=== PATIENT | female | born 1965 | race African-American/Black ===

== ENCOUNTER 2017-08-25 13:08 | Emergency (ER) | payer OTHER ==
[2017-08-25 15:35] LABS: ABS Basophils 0 10^3/ul (0-0.2); ABS Eosinophils 0.1 10^3/ul (0-0.6); ABS Monocytes 0.7 10^3/ul (0-0.8); ABS Neutrophils 3.1 10^3/ul (1.5-7.7); ABS Nucleated RBC 0 10^3/ul; Eosinophil % 2.4 % (0-6); Hematocrit 44 % (35-47); Lymphocyte % 32.9 % (25-47); Mean Corpuscular HGB Conc 34 g/dl (31-36); Mean Corpuscular Hemoglobin 32 pg (27-31); Mean Corpuscular Volume 94 fL (80-97); Mean Platelet Volume 8 um3 (7.4-10.4); Nucleated Red Blood Cells % 0.1; Platelet Count 321 10^3/ul (150-450); Red Cell Distribution Width 13 % (10.5-15)
[2017-08-25 15:49] LABS: EGFR Non-African American 58.7 (>60)
--- NOTE | 2017-08-25 16:18 | RAD ---
INDICATION: Pain and swelling. COMPARISON: None TECHNIQUE: Duplex interrogation of the Lowerextremity was performed. FINDINGS: Deep veins: The common femoral, great saphenous, profunda femoris, proximal, mid, and distal deep femoral, popliteal, posterior tibial, and peroneal veins are patent. There is normal compressibility, augmentation, and phasic flow. Superficial veins: There are no findings of superficial thrombophlebitis. Popliteal fossa:There is no evidence of a popliteal cyst. Soft tissues:There are no soft tissue abnormalities. IMPRESSION: Normal examination. No evidence of deep venous thrombosis
[2017-08-25] MEDS ORDERED: Ketorolac INJ* 60 MG/2 ML VIAL IM ONE (17:04)
[2017-08-25 18:05] VITALS: BP 127/69
--- NOTE | 2017-08-26 17:38 | ED ---
Christine White Edward, scribed for Casey Martinez MD on 08/25/17 at 1459 . Lower Extremity - HPI Summary HPI Summary: 52 y/o female presents to the ED c/o bilateral lower extremity pain starting 2 days ago. The pain started at her L toes and radiates up the back of her leg to her lower back. The pain at her R leg is at her foot and has started to radiate up her leg. 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 Denies DM. Pt stopped smoking 7 months ago. - History of Current Complaint Chief Complaint: EDExtremityLower Stated Complaint: PAIN IN BOTH LEGS Time Seen by Provider: 08/25/17 14:55 Hx Obtained From: Patient Hx Last Menstrual Period: 2 wks ago Onset of Pain: Days Onset/Duration: Still Present Severity Currently: Severe Pain Intensity: 10 Pain Scale Used: 0-10 Numeric Timing: Constant Location: Radiates To - feet up the back of the legs to the back - Allergies/Home Medications Allergies/Adverse Reactions: Allergies Allergy/AdvReac Type Severity Reaction Status Date / Time No Known Allergies Allergy Verified 08/25/17 13:10 PMH/Surg Hx/FS Hx/Imm Hx Previously Healthy: No Endocrine/Hematology History: Denies: Hx Diabetes Respiratory History: Reports: Hx Asthma - Cancer History Hx Chemotherapy: No Hx Radiation Therapy: No - Surgical History Surgery Procedure, Year, and Place: tonsils; tubal ligation Infectious Disease History: No Infectious Disease History: Denies: Traveled Outside the [place] in Last 30 Days - Family History Known Family History: Positive: None - Social History Alcohol Use: Occasionally Hx Substance Use: No Substance Use Type: Reports: None Hx Tobacco Use: Yes Smoking Status (MU): Former Smoker Review of Systems Constitutional: Negative Eyes: Negative ENT: Negative Cardiovascular: Negative Respiratory: Negative Gastrointestinal: Negative Genitourinary: Negative Positive: Myalgia - bilateral LE pain Skin: Negative Neurological: Negative Psychological: Normal All Other Systems Reviewed And Are Negative: Yes Physical Exam - Summary Physical Exam Summary: VITAL SIGNS: Reviewed. GENERAL: Patient is a well-developed and nourished female who is lying comfortable in the stretcher. Patient is not in any acute respiratory distress. HEAD AND FACE: No signs of trauma. No ecchymosis, hematomas or skull depressions. No sinus tenderness. EYES: PERRLA, EOMI x 2, No injected conjunctiva, no nystagmus. EARS: Hearing grossly intact. Ear canals and tympanic membranes are within normal limits. MOUTH: Oropharynx within normal limits. NECK: Supple, trachea is midline, no adenopathy, no JVD, no carotid bruit, no c- spine tenderness, neck with full ROM. CHEST: Symmetric, no tenderness at palpation LUNGS: Clear to auscultation bilaterally. No wheezing or crackles. CVS: Regular rate and rhythm, S1 and S2 present, no murmurs or gallops appreciated. ABDOMEN: Soft, non-tender. No signs of distention. No rebound no guarding, and no masses palpated. Bowel sounds are normal. EXTREMITIES: FROM in all major joints, no edema, no cyanosis or clubbing. There is L calf tenderness. Positive Karen's sign. NEURO: Alert and oriented x 3. No acute neurological deficits. Speech is normal and follows commands. SKIN: Dry and warm Triage Information Reviewed: Yes Vital Signs On Initial Exam: Initial Vitals Temp Pulse Resp BP Pulse Ox 98.3 F 98 20 132/75 100 08/25/17 13:10 08/25/17 13:10 08/25/17 13:10 08/25/17 13:10 08/25/17 13:10 Vital Signs Reviewed: Yes Diagnostics - Vital Signs Vital Signs Temp Pulse Resp BP Pulse Ox 08/25/17 13:10 98.3 F 98 20 132/75 100 - Laboratory Lab Results: Lab Results 08/25/17 08/25/17 Range/Units 15:29 15:29 WBC 6.0 (3.5-10.8) 10^3/ul RBC 4.70 (4.0-5.4) 10^6/ul Hgb 15.0 (12.0-16.0) g/dl Hct 44 (35-47) % MCV 94 (80-97) fL MCH 32 H (27-31) pg MCHC 34 (31-36) g/dl RDW 13 (10.5-15) % Plt Count 321 (150-450) 10^3/ul MPV 8 (7.4-10.4) um3 Neut % (Auto) 51.5 (38-83) % Lymph % (Auto) 32.9 (25-47) % Ceiba % (Auto) 12.4 H (1-9) % Eos % (Auto) 2.4 (0-6) % Baso % (Auto) 0.8 (0-2) % Absolute Neuts (auto) 3.1 (1.5-7.7) 10^3/ul Absolute Lymphs (auto) 2.0 (1.0-4.8) 10^3/ul Absolute Monos (auto) 0.7 (0-0.8) 10^3/ul Absolute Eos (auto) 0.1 (0-0.6) 10^3/ul Absolute Basos (auto) 0 (0-0.2) 10^3/ul Absolute Nucleated RBC 0 10^3/ul Nucleated RBC % 0.1 Sodium 137 (133-145) mmol/L Potassium 3.8 (3.5-5.0) mmol/L Chloride 105 (101-111) mmol/L Carbon Dioxide 26 (22-32) mmol/L Anion Gap 6 (2-11) mmol/L BUN 11 (6-24) mg/dL Creatinine 1.00 H (0.51-0.95) mg/dL Est GFR ( Amer) 75.5 (>60) Est GFR (Non-Af Amer) 58.7 (>60) BUN/Creatinine Ratio 11.0 (8-20) Glucose 132 H (70-100) mg/dL Uric Acid 4.3 (2.3-6.6) mg/dL Calcium 8.8 (8.6-10.3) mg/dL Total Bilirubin 0.50 (0.2-1.0) mg/dL AST 19 (13-39) U/L ALT 7 (7-52) U/L Alkaline Phosphatase 94 (34-104) U/L C-Reactive Protein 3.90 (< 5.00) mg/L Total Protein 6.7 (6.4-8.9) g/dL Albumin 4.0 (3.2-5.2) g/dL Globulin 2.7 (2-4) g/dL Albumin/Globulin Ratio 1.5 (1-3) Result Diagrams: 08/25/17 15:29 08/25/17 15:29 Lab Statement: Any lab studies that have been ordered have been reviewed, and results considered in the medical decision making process. - Ultrasound No standard instances Ultrasound Interpretation: No Acute Changes - DANAE DOPPLER LE - Normal examination. No evidence of deep venous thrombosis Ultrasound Interpretation Completed By: Radiologist Lower Extremity Course/Dx - Course Assessment/Plan: 52 y/o female presents to the ED c/o bilateral lower extremity pain starting 2 days ago. The pain started at her L toes and radiates up the back of her leg to her lower back. The pain at her R leg is at her foot and has started to radiate up her leg. 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 Denies DM. Pt stopped smoking 7 months ago. DANAE DOPPLER LE - Normal examination. No evidence of deep venous thrombosis. Test results are without significant abnormalities. In the ED course the pt was given Toradol and the sx improved; the pt is ambulating without difficulty. Therefore, I discussed the test results and findings with the patient and she will be d/c home with f/u with her PCP. The pt is hemodynamically stable, A&Ox3. - Diagnoses Differential Diagnosis/HQI/PQRI: Positive: Bursitis, Cellulitis, DVT, Sprain, Strain Provider Diagnoses: Musculoskeletal leg pain Discharge - Discharge Plan Condition: Stable Disposition: HOME Prescriptions: Naproxen [Naproxen 500 mg] 500 mg PO Q8H PRN #20 tab PRN Reason: Pain Patient Education Materials: Leg Pain (ED) Forms: *Work Release Referrals: Bam Samayoa MD [Primary Care Provider] - 4 Days (PLEASE F/U IN 3-5 DAYS NEEDED) Additional Instructions: RETURN TO THE ED FOR THE RETURN OF OR WORSENING OF SYMPTOMS The documentation as recorded by the Christine santos Edward accurately reflects the service I personally performed and the decisions made by , Casey Martinez MD.
== END 2017-08-25 18:04 | disposition home or self-care (01) ==
LOC: ED 13:08
DX: M79.662 Pain in left lower leg (principal); M79.661 Pain in right lower leg; Z87.891 Personal history of nicotine dependence
CPT/HCPCS: 36415; 80053; 84550; 85025; 86140; 99282; J1885

== ENCOUNTER 2017-12-06 08:55 | Emergency (ER) | payer OTHER ==
[2017-12-06] MEDS ORDERED: Ketorolac INJ* 60 MG/2 ML VIAL IM ONE (09:48)
--- NOTE | 2017-12-06 09:58 | RAD ---
INDICATION: Right knee injury. TECHNIQUE: 4 views of the right knee were obtained. FINDINGS: The bones are in normal alignment. No joint effusion or fracture is seen. There is mild osteoarthritic change in the patellofemoral compartment. IMPRESSION: NO EVIDENCE FOR FRACTURE.
[2017-12-06 11:21] VITALS: BP 159/80
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
== END 2017-12-06 11:18 | disposition home or self-care (01) ==
LOC: ED 08:55
DX: S80.01XA Contusion of right knee, initial encounter (principal); V49.40XA Driver injured in collision with unspecified motor vehicles in traffic accident, initial encounter; Y93.89 Activity, other specified; Y92.9 Unspecified place or not applicable; J45.909 Unspecified asthma, uncomplicated; Z87.891 Personal history of nicotine dependence
CPT/HCPCS: 96372; 99282; J1885

== ENCOUNTER 2018-01-05 10:20 | Emergency (ER) | payer OTHER ==
--- OUTSIDE RECORDS SUMMARY | 2018-01-05 10:54 | XMS REPORT ---
:1965 External Reference #:[id number] Author Organization [employer] Address [address] [facility] [address] [place] [address] Phone [phone] Care Team Providers Name Role Phone Bam Samayoa MD Primary Care Physician Unavailable Payers Type Date Identification Numbers Payment Provider Subscriber Commercial Effective: Policy Number: [id number] [employer] Andaleda N Schwab 2015 Medicaid PayID: [id number] [address] [place] [phone] Commercial Expires: Policy Number: M[employer] Andaleda N 2015 [id number] Medicaid [place] PayID: [id number] [address] [address] [place] [address] Workers Compensation Effective: Policy Number: Dakotah Aleman Whitney Schwab 2013 [id number] Onset: 2013 PayID: [id number] [address] [place] [address] Problems Date Description Provider Status Onset: 10/09/2013 Sprain of wrist Erica Parry M.D. 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 ETOH Use Denies alcohol use Smoking 2002 Patient is a current smoker, stopped smoking 03/2015 smokes every day Recreational Drug Use Denies Drug Use Recreational Drug Use Formerly used Marijuana sporadically Daily Caffeine Consumes on average 1 cup of regular coffee per day Exercise Type/Frequency Does not exercise STD's 2010 [facility] General Hx Text hx of incarceration X 1 yr due to making verbal threats Sexual Hx text has a boyfriend Allergies, Adverse Reactions, Alerts Date Description Reaction Status Severity Comments 02/23/2013 NKDA active 02/23/2013 Seasonal active Medications Medication Date Status Form Strength Qnty SIG Indications Ordering Provider Naproxen 12/12/ Active Tablets 500mg 60tab 1 tablet with M25.561 Brett 2017 s food by mouth F twice a day Steve, as needed Ibuprofen 04/17/ Active Tablets 800mg 60tab 1 tab by N94.6 Zsofia 2016 s mouth three Kyle, times a day 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 2018 not close to bedtime Metronidazole 05/31/ Hx Tablets 500mg 4tabs take 4 A59.01 Erica 2014 - tablets Sohan 06/24/ together po M.D. 2014 x1 Diflucan 04/29/ Hx Tablets 150mg 2tabs 1 tab by Erica 2014 - mouth once no Sohan, 05/31/ and then M.D. 2014 repeat in 1 week Venlafaxine HCL 04/28/ Hx Caps ER 37.5mg 49cap 1 tab by Z00.00 Erica ER 2014 - 24HR s mouth every Sohan day 7 days M.D. 2014 Chantix 04/28/ Hx Tablets 1mg 60tab follow F17.210 Erica Continuing 2014 instructions Fish Parry 04/28/ on pac M.D. 2014 Venlafaxine HCL 04/28/ Hx Caps ER 37.5mg 7caps 1 tab by Z00.00 Erica ER 2014 - 24HR mouth every Sohan day x 7 M.D. 2014 Venlafaxine HCL 04/28/ Hx Caps ER 75mg 90cap 1 by mouth po Erica ER 2014 - 24HR s qd x 3 weeks Sohan .DPhilip 2014 Chantix 04/28/ Hx Tablets 1mg 60tab 1 by mouth F17.210 Erica 2014 twice a day Sohan M.DPhilip 2014 Chantix 04/28/ Hx Tablets 0.5mg 49tab 1 tab po 2x F17.210 Erica 2014 s per day for 7 Parry ,then 2 M.D. 2014 tab po 2x per day for 21 days Chantix 04/28/ Hx Tablets 53tab as directed Erica Starting 2014 Kamar Parry M.DPhilip 2014 Ibuprofen 03/17/ Hx Tablets 600mg 90tab three times a 840.9 Erica 2014 day as needed Sohan 03/17/ M.DPhilip 2014 Ibuprofen 03/17/ Hx Tablets 600mg 90tab three times a 840.9 Kathrine 2014 day as needed Antoine 05/22/ M.DPhilip 2016 No Active 09/28/ Hx Unknown Medications 2014 - 2014 Tamiflu 09/28/ Hx Capsules 75mg 10cap 1 by mouth 488.11 Erica 2014 - s twice a day Sohan 04/28/ M.Amanda 2014 Wrist Splint 10/08/ Hx Misc 1unit rt splint 842.09 Kathrine 2013 neutral Antoine 09/28/ medium dx M.DPhilip 2014 code 8420.09 Naproxen 10/08/ Hx Tablets 500mg 60tab 1 po bid prn 842.09 Erica 2013 - s Sohan 09/28/ M.DPhilip 2014 Ibuprofen 06/23/ Hx Tablets 600mg 45tab three times a 840.9 Erica 2012 - day as needed Sohan 09/28/ MHan 2014 No Active Hx Unknown Medications 2012 - 2012 Proair HFA 02/23/ Hx Aerosol 108(90Bas 1unit 2 puffs every 493.10 Kathrine 2012 - e) s 4-6 hrs as Antoine 09/28/ mcg/Act needed M.DPhilip 2014 Ibuprofen 02/23/ Hx Tablets 400mg 90tab 1 by mouth q 625.3 Kathrine 2012 - 8hr prn Antoine, 10/08/ M.DPhilip 2013 Vital Signs Date Vital Result Comment 12/24/2017 Weight 198.00 lb BP Systolic Sitting 128 mmHg BP Diastolic Sitting 70 mmHg Respiratory Rate 16 /min Body Temperature 97.1 F Pain Level 6 12/12/2017 Height 69 inches 5'9" Weight 189.00 lb Heart Rate 98 /min BP Systolic Sitting 118 mmHg BP Diastolic Sitting 68 mmHg Pain Level 9 O2 % BldC Oximetry 97 % BMI (Body Mass Index) 27.9 kg/m2 05/22/2017 Height 69 inches 5'9" Weight 184.00 lb Heart Rate 76 /min BP Systolic 120 mmHg BP Diastolic 74 mmHg Body Temperature 96.6 F O2 % BldC Oximetry 99 % BMI (Body Mass Index) 27.2 kg/m2 04/17/2017 Height 69 inches 5'9" Weight 182.25 lb Heart Rate 76 /min BP Systolic 118 mmHg BP Diastolic 68 mmHg Body Temperature 98.4 F O2 % BldC Oximetry 98 % BMI (Body Mass Index) 26.9 kg/m2 09/06/2015 Heart Rate 83 /min BP Systolic Sitting 111 mmHg BP Diastolic Sitting 70 mmHg Body Temperature 97.7 F O2 % BldC Oximetry 99 % 05/31/2015 Height 69.5 inches 5'9.50" Weight 188.00 lb Heart Rate 89 /min BP Systolic 122 mmHg BP Diastolic 70 mmHg BMI (Body Mass Index) 27.4 kg/m2 04/28/2015 Height 69.5 inches 5'9.50" Weight 185.50 lb Heart Rate 93 /min BP Systolic Sitting 126 mmHg BP Diastolic Sitting 74 mmHg O2 % BldC Oximetry 99 % BMI (Body Mass Index) 27.0 kg/m2 09/28/2014 Height 69 inches 5'9" Weight 178.50 lb Heart Rate 116 /min BP Systolic Sitting 120 mmHg BP Diastolic Sitting 72 mmHg Body Temperature 100.0 F O2 % BldC Oximetry 96 % BMI (Body Mass Index) 26.4 kg/m2 11/17/2013 Height 69 inches 5'9" Weight 170.75 lb Heart Rate 105 /min BP Systolic Sitting 124 mmHg BP Diastolic Sitting 80 mmHg O2 % BldC Oximetry 98 % BMI (Body Mass Index) 25.2 kg/m2 10/22/2013 Height 69 inches 5'9" Weight 170.00 lb Heart Rate 80 /min BP Systolic Sitting 120 mmHg BP Diastolic Sitting 72 mmHg Body Temperature 98.7 F BMI (Body Mass Index) 25.1 kg/m2 10/08/2013 Weight 170.25 lb Heart Rate 99 /min BP Systolic Sitting 135 mmHg BP Diastolic Sitting 77 mmHg Body Temperature 97.6 F Pain Level 9 06/23/2013 Weight 169.00 lb Heart Rate 80 /min BP Systolic Sitting 140 mmHg BP Diastolic Sitting 90 mmHg 02/23/2013 Height 69.5 inches 5'9.50" Weight 170.50 lb Heart Rate 93 /min BP Systolic Sitting 112 mmHg BP Diastolic Sitting 77 mmHg BMI (Body Mass Index) 24.8 kg/m2 Results Test Date Test Result H/L Range Note CBC Auto Diff 08/25/2017 White Blood Count 6.0 10^3/uL 3.5-10.8 Red Blood Count 4.70 10^6/uL 4.0-5.4 Hemoglobin 15.0 g/dL 12.0-16.0 Hematocrit 44 % 35-47 Mean Corpuscular Volume 94 fL 80-97 Mean Corpuscular Hemoglobin 32 pg High 27-31 Mean Corpuscular HGB Conc 34 g/dL 31-36 Red Cell Distribution Width 13 % 10.5-15 Platelet Count 321 10^3/uL 150-450 Mean Platelet Volume 8 um3 7.4-10.4 Abs Neutrophils 3.1 10^3/uL 1.5-7.7 Abs Lymphocytes 2.0 10^3/uL 1.0-4.8 Abs Monocytes 0.7 10^3/uL 0-0.8 Abs Eosinophils 0.1 10^3/uL 0-0.6 Abs Basophils 0 10^3/uL 0-0.2 Abs Nucleated RBC 0 10^3/uL Granulocyte % 51.5 % 38-83 Lymphocyte % 32.9 % 25-47 Monocyte % 12.4 % High 1-9 Eosinophil % 2.4 % 0-6 Basophil % 0.8 % 0-2 Nucleated Red Blood Cells % 0.1 Comp Metabolic Panel 08/25/2017 Sodium 137 mmol/L 133-145 Potassium 3.8 mmol/L 3.5-5.0 Chloride 105 mmol/L 101-111 Co2 Carbon Dioxide 26 mmol/L 22-32 Anion Gap 6 mmol/L 2-11 Glucose 132 mg/dL High 70-100 Blood Urea Nitrogen 11 mg/dL 6-24 Creatinine 1.00 mg/dL High 0.51-0.95 BUN/Creatinine Ratio 11.0 8-20 Calcium 8.8 mg/dL 8.6-10.3 Total Protein 6.7 g/dL 6.4-8.9 Albumin 4.0 g/dL 3.2-5.2 Globulin 2.7 g/dL 2-4 Albumin/Globulin Ratio 1.5 1-3 Total Bilirubin 0.50 mg/dL 0.2-1.0 Alkaline Phosphatase 94 U/L 34-104 Alt 7 U/L 7-52 Ast 19 U/L 13-39 Egfr Non- 58.7 >60 Egfr 75.5 >60 1 Laboratory test finding 08/25/2017 Uric Acid 4.3 mg/dL 2.3-6.6 C Reactive Protein 3.90 mg/L < 5.00 2 Laboratory test 05/31/2015 HIV 1&2 AB Self <pending> finding Referred Laboratory test 05/31/2015 HIV 1/2 AB Nonreactive Nonreactive 3 finding Evaluation Laboratory test 04/28/2015 Gardnerella/Yeast: SEE RESULT BELOW 4 finding Vaginal Dna Trichomonas Vaginalis Rna Positive Negative 5 HPV Rna Ww/Reflex Genotype Negative Negative 6 GC/Chlamydia Amplified Rna 04/28/2015 Chlamydia trachomatis Rna Negative Negative Neisseria gonorrhoeae (GC) Rna Negative Negative 7 Laboratory test finding 04/28/2015 Cytology SEE RESULT BELOW 8 Laboratory test finding 09/28/2014 Rapid Strep A neg 1 Because ethnic data is not always readily available, this report includes an eGFR for both -Americans and non- Americans. The National Kidney Disease Education Program (NKDEP) does not endorse the use of the MDRD equation for patients that are not between the ages of 18 and 70, are , have extremes of body size, muscle mass, or nutritional status, or are non- or non-. According to the National Kidney Foundation, irrespective of diagnosis, the stage of the disease is based on the level of kidney function: Stage Description GFR(mL/min/1.73 m(2)) 1 Kidney damage with normal or decreased GFR 90 2 Kidney damage with mild decrease in GFR 60-89 3 Moderate decrease in GFR 30-59 4 Severe decrease in GFR 15-29 5 Kidney failure <15 (or dialysis) 2 Acute inflammation: >10.00 3 It is recognized that currently available assays for the detection of antibodies to HIV-1 and/or HIV-2 may not detect all infected individuals. HIV antibodies may be undetectable in some stages of the infection and in some clinical conditions. The performance of this assay has not been established for populations of infants or children. Assayed by Chemiluminescence Microparticle Immunoassay on the Siemens Advia Centaur CP. Values obtained with different methods or kits cannot be used interchangeably.The diagnostic specificity of the ADVIA Centaur 1/O/2 Enhanced assay in the low risk population was 99.90% (6052/6058) with a 95% confidence interval of 99.78 to 99.96%. 4 SEE RESULT BELOW Name: LETY SCHWAB : [address]: Erica Parry MD Acct: [id number] Unit: [id number] AGE: 50 Location: [facility] Re04/28/15 SEX: F Status: REG REF SPEC: [id number] GUIDO: 04/28/15-[address]: Erica Parry MD REQ: [id number] RECD: 04/28/15 STATUS: COMP _ SOURCE: VAGINAL SPDESC: ORDERED: Idalia,Yeast DNA Procedure Result Verified Site Gardnerella/Yeast: Vaginal DNA Final 04/29/15- 1102 ML Organism 1 Negative Gardnerella Organism 2 POSITIVE SOCORRO The presence of G. vaginalis, although suggestive, is not diagnostic for bacterial vaginosis. Results should be interpreted in conjuction with other clinical and laboratory data available. Women with vaginal discharge should be evaluated for risk factors of cervicitis and pelvic inflammatory disease, toxic shock syndrome (S.aureus), and if present, evaluated for organisms not included in this assay such as N. gonorrhoeae, C. trachomatis, Mobiluncus, Mycoplasma and/or Prevotella. Mixed infections may occur. The performance of this test on patient specimens collected during or immediately after antimicrobial therapy is unknown. The presence or absence of Socorro species, or G. vaginalis cannot be used as a test for therapeutic success or failure. * ML - MAIN LAB ([facility]) . END OF REPORT * ML=Testing performed at Main Lab DEPARTMENT OF PATHOLOGY, [address] [place] [address] Delano Mcdaniel M.D. Director [facility] # [id number] 5 GC/Chlamydia Source?: Thin Prep HPV Source?: Thin Prep Trichomonas Source: Thin Prep 6 The high-risk HPV types detected by the assay include: 16, 18, 31, 33, 35, 39, 45, 51, 52, 56, 58, 59, 66, and 68. 7 Female urine specimens have been self-validated by [facility] and have been granted conditional assay approval by [facility]. 8 SEE RESULT BELOW Name: ELTY SCHWAB : [address]: Erica Parry MD Acct: [id number] Unit: [id number] AGE: 50 Location: [facility] Re04/28/15 SEX: F Status: REG REF SPEC: [id number] GUIDO: 04/28/[address] [facility] [address]: Erica Parry MD REQ: [id number] RECD: 04/28/15 STATUS: SOUT _ ORDERED: IMAGE ANALYSIS, HPV/Thin Prep, HPV 16/18 GENE FINAL DIAGNOSIS Negative for Intraepithelial lesion or Malignancy Fungal organisms morphologically consistent with Socorro species A. Ectocervical/Endocervical Specimen Adequacy: Satisfactory of evaluation Transformation zone component identified Patient Information: HPV: High risk HPV RNA testing regardless of pap results. HPV 16/18 Genotype for HPV pos Actual Specimen Date: 04/28/15 Post Menopausal?: Y Previous Abnormal Pap Smears?:N Date Time Test Result Flag (u) Normal Range 04/28/159 HPV RNA RFLX GE Negative Negative The high-risk HPV types detected by the assay include: 16, 18, 31, 33, 35, 39, 45, 51, 52, 56, 58, 59, 66, and 68. Signed (signature on file) Robe Endy 04/29/15 1331 This Pap test was evaluated with the assistance of the FungosPrep Test Imaging System. Due to cytologic findings at the acetylene burner microscope, comprehensive manual rescreening by a Bindery Machine Feeder Offbearer may be required. The Pap Smear is a screening test designed to aid in the detection of premalignant and malignant conditions of the uterine cervix. It is not a diagnostic procedure and should not be used as the sole means of detecting cervical cancer. Both false- positive and false- negative reports do occur. Depending on your risk status, a Pap smear should be obtained and evaluated every 1-3 years. END OF REPORT * ML=Testing performed at Main Lab DEPARTMENT OF PATHOLOGY, [address] [place] [address] Delano Mcdaniel M.D. Director [facility] # [id number] Procedures Date CPT Code Description Status 05/22/2017 Mammogram Completed 05/18/2015 Mammogram Completed Encounters Type Date Location Provider CPT E/M Dx Office Visit 12/24/2017 [facility] Brett Wilson, [address]79 M25.561 2:15p Of Severo MERIDA Office Visit 12/12/2017 [facility] Brett Wilson, [address]85[address] M25.561 1:30p Of Severo MERIDA Office Visit 12/12/2017 [facility] Internal Medicine Kathrine Schultz [address]903 M25.561 10:30a - Tiago Saleh Office Visit 05/22/2017 [facility] Internal Medicine SANJANA Desai [address]9899 F17.210 10:20a - Tbkeshawn Knox M25.571 Office Visit 04/17/2017 2:40p [facility] Internal Medicine Leny Wright, [facility] [address] Z00.[address] F17.210 R23.9 J30.9 N94.6 Z13.220 N95.1 Z12.11 Z12.31 Office Visit 09/06/2015 11:00a [facility] Internal Medicine Erica Parry M.D. 78561 J01.90 - Nitro R23.9 Office Visit 05/31/2015 11:00a [facility] Internal Medicine Erica Parry M.D. 85835 N95.1 - Nitro A59.01 N64.59 F17.201 Office Visit 04/28/2015 1:00p [facility] Internal Medicine Erica Parry M.D. 96295 Z00.00 - Nitro N95.1 Z12.31 Z12.4 R53.83 Z82.49 F17.210 Office Visit 09/28/2014 1:00p [facility] Internal Medicine Erica Parry M.D. 95302 488.11 - Nitro 784.1 487.1 Office Visit 11/17/2013 2:00p [facility] Internal Medicine Erica Parry M.D. 88257 923.3 - Nitro 842.13 Office Visit 10/22/2013 4:20p [facility] Internal Medicine Erica Parry M.D. 14995 842.09 - Nitro 842.09 Office Visit 10/08/2013 3:40p [facility] Internal Kourtney Parry M.D. 13292 842.09 - Nitro 923.3 Office Visit 06/23/2013 1:40p [facility] Internal Medicine Erica Parry M.D. 64648 955.2 - Nitro 840.9 V76.19 Office Visit 02/23/2013 1:50p [facility] Internal Medicine Kathrine Schultz 50951 493.10 - Ivory Saleh 305.1 625.3 Plan of Care Future Appointment(s):02/25/2018 2:00 pm - Brett Wilson MD at [facility].12/24/2017 - Brett Wilson, MDM25.561 Pain in right kneeFollow up:Follow up: 2 months
--- OUTSIDE RECORDS SUMMARY | 2018-01-05 10:54 | XMS REPORT ---
:1965 External Reference #:[id number] Author Organization [employer] Address [address] [facility] [address] [place] [address] Phone [phone] Care Team Providers Name Role Phone Bam Samayoa MD Primary Care Physician Unavailable Payers Type Date Identification Numbers Payment Provider Subscriber Commercial Effective: Policy Number: [id number] [employer] Andaleda N Schwab 2015 Medicaid PayID: [id number] [address] [place] [address] Commercial Expires: Policy Number: [employer] Andaleda N 2015 [id number] Medicaid [place] PayID: [id number] [address] [address] [place] [address] Workers Compensation Effective: Policy Number: Dakotah Aleman Whitney Schwab 2013 [id number] Onset: 2013 PayID: [id number] [address] [place] [address] Problems Date Description Provider Status Onset: 10/09/2013 [...] s mouth three Kyle, times a day 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 Loratadine 04/17/ Active [...] Wright 12/12/ 1 mg X 42 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 Loratadine 12/11/ Hx Tablets 10mg 30tab [...] Misc 1unit rt splint 842.09 Kathrine 2013 - neutral Antoine 09/28/ medium dx M.DPhilip 2014 code 8420.09 Naproxen 10/08/ Hx Tablets 500mg 60tab 1 po bid prn 842.09 Erica 2013 - s Sohan 09/28/ M.DPhilip 2014 Ibuprofen 06/23/ Hx Tablets 600mg 45tab three times a 840.9 Erica 2012 - day as needed Sohan 09/28/ M.Amanda 2014 No Active Hx Unknown Medications 2012 - 2012 Proair HFA 02/23/ Hx Aerosol 108(90Bas 1unit 2 puffs every 493.10 Kathrine 2012 - e) s 4-6 hrs as Antoine, 09/28/ mcg/Act needed M.DPhilip 2014 Ibuprofen 02/23/ Hx Tablets 400mg 90tab 1 by mouth q 625.3 Kathrine 2012 - 8hr prn Antoine, 10/08/ M.DPhilip 2013 Vital Signs Date Vital Result Comment 12/12/2017 Height 69 inches 5'9" Weight 189.00 [...] [address]: Erica Parry MD Acct: [id number] Unit: [id number] AGE: 50 Location: [facility] Re04/28/15 SEX: F Status: REG REF SPEC: [id number] GUIDO: 04/28/15-[address]: Erica Parry MD REQ: [id number] RECD: 04/28/15 STATUS: COMP _ SOURCE: VAGINAL [...] therapeutic success or failure. * ML - [facility] ([facility]) . END OF REPORT * ML=Testing performed at Main Lab DEPARTMENT OF PATHOLOGY, [address] [place] [address] Delano Mcdaniel M.D. Director [facility] # [id number] 5 GC/Chlamydia Source?: Thin Prep HPV Source?: Thin Prep Trichomonas Source: Thin Prep 6 The high-risk HPV types detected by the assay include: 16, 18, 31, 33, 35, 39, 45, 51, 52, 56, 58, 59, 66, and 68. 7 Female urine specimens have been self-validated by [facility] and have been granted conditional assay approval by [facility]. 8 SEE RESULT BELOW Name: LETY SCHWAB : [address]: Erica Parry MD Acct: [id number] Unit: [id number] AGE: 50 Location: [facility] Re04/28/15 SEX: F Status: REG REF SPEC: [id number] GUIDO: 04/28/[address] [facility] [address]: Erica Parry MD REQ: [id number] RECD: 04/28/15 STATUS: SOUT _ ORDERED: IMAGE [...] Time Test Result Flag (u) Normal Range 04/28/15 1409 HPV RNA RFLX GE Negative Negative The high-risk HPV types detected by the assay include: 16, 18, 31, 33, 35, 39, 45, 51, 52, 56, 58, 59, 66, and 68. Signed (signature on file) Robe Schumacher 04/29/15 1331 This Pap test was evaluated with the assistance of the [employer]p Test Imaging System. Due to cytologic findings at the vamp cut out worker microscope, comprehensive manual rescreening by a Software Technical Lead may be required. The Pap Smear is [...] performed at Main Lab DEPARTMENT OF PATHOLOGY, [address] [place] [address] Delano Mcdaniel M.D. Director [facility] # [id number] Procedures Date CPT Code Description Status 05/22/2017 Mammogram Completed 05/18/2015 Mammogram Completed Encounters Type Date Location Provider CPT E/M Dx Office Visit 05/22/2017 10:20a [facility] Internal SANJANA Desai [address] F17.210 Medicine - [address] M25.571 Office Visit 04/17/2017 2:40p [facility] Internal Medicine SANJANA Desai [address]289 Z00.00 - [address] F17.210 R23.9 J30.9 N94.6 Z13.220 N95.1 Z12.11 Z12.31 Office Visit 09/06/2015 11:00a [facility] Internal Medicine Erica Parry M.D. 31791 J01.90 - Ivory R23.9 Office Visit 05/31/2015 11:00a [facility] Internal Medicine Erica Parry M.D. 13393 N95.1 - Ivory A59.01 N64.59 F17.201 Office Visit 04/28/2015 1:00p [facility] Internal Medicine Erica Parry M.D. 24531 Z00.00 - Drifting N95.1 Z12.31 Z12.4 R53.83 Z82.49 F17.210 Office Visit 09/28/2014 1:00p [facility] Internal Medicine Erica Parry M.D. 21728 488.11 - Drifting 784.1 487.1 Office Visit 11/17/2013 2:00p [facility] Internal Medicine Erica Parry M.D. 22247 923.3 - Drifting 842.13 Office Visit 10/22/2013 4:20p [facility] Internal Medicine Erica Parry M.D. 11825 842.09 - Drifting 842.09 Office Visit 10/08/2013 3:40p [facility] Internal Medicine Erica Parry M.D. 14302 842.09 - Drifting 923.3 Office Visit 06/23/2013 1:40p [facility] Internal Medicine Erica Parry M.D. 06901 955.2 - Drifting 840.9 V76.19 Office Visit 02/23/2013 1:50p [facility] Internal Medicine Kathrine Schultz, 46899 493.10 - Ivory Saleh 305.1 625.3 Plan of Care 12/12/2017 - Brett Wilson, MDM25.561 Pain in right kneeNew Medication: Naproxen 500 mgNew Xrays:MRI Knee Right W/OFollow up:Follow up: after MRI
--- OUTSIDE RECORDS SUMMARY | 2018-01-05 10:55 | XMS REPORT ---
:1965 External Reference #:[id number] Author Organization [facility] Address [address] [address] Phone [phone] Care Team Providers Name Role Phone Bam Samayoa MD Primary Care Physician Unavailable Payers Type Date Identification Numbers Payment Provider Subscriber Commercial Effective: Policy Number: [id number] [employer] Andaleda N Schwab 2015 Medicaid PayID: [id number] [address] [place] [id number] Commercial Expires: Policy Number: Mire[employer] Andaleda N 2015 [id number] Medicaid [place] PayID: [id number] [address] [address] [place] [address] Workers Compensation Effective: Policy Number: Jamescrescencio Monalibby Schwab 2013 [id number] Onset: 2013 PayID: [id number] [address] [place] [address] Problems Date Description Provider Status Onset: 10/09/2013 Sprain of wrist Erica Parry M.D. Active Note: right wrist Family History Date Family Member(s) Problem(s) Comments [...] 1 cup of regular coffee per day STD's 2010 [facility] General Hx Text hx of incarceration X 1 yr due to making verbal threats Sexual Hx text has a boyfriend Allergies, Adverse Reactions, Alerts Date Description Reaction Status Severity Comments 02/23/2013 NKDA active 02/23/2013 Seasonal active Medications Medication Date Status Form Strength Qnty SIG Indications Ordering Provider Ibuprofen 04/17/ Active Tablets 800mg 60tab 1 tab by N94.6 Krissyofia 2016 s mouth three Kyle, times a day SASH MAKER with food as needed Loratadine 04/17/ Active Tablets 10mg 30tab 1 by mouth J30.9 Krissyofia 2016 s every day SANJANA Wright Calcium 600-D 04/17/ Active Tablets 600-400mg 180ta 1 by mouth N95.1 Krissyofia 2016 -Unit bs twice a day SANJANA Wright Guaifenesin ER 09/06/ Active Tablets 600mg 30tab 1 by mouth J01.90 Erica 2015 ER 12HR s twice a day joshua Parry M.D. Humidifier 09/06/ Active Misc 1.25Gal 1unit as needed in J01.90 Erica 2015 s bedroom Therese Parry Proair HFA 10/12/ Active Aerosol 108(90Bas 1unit 2 puffs every J45.30 Erica 2014 e) s 4-6 hours as debby Parry/Act needed M.D. Chantix 04/17/ Hx Tablets 0.5mg X QS use according F17.210 Krissyofitristian Starting Month 2016 & to package Kamar Wright 12/12/ 1 mg X 42 insturction SASH MAKER 2018 Loratadine 12/11/ Hx Tablets 10mg 30tab take 1 tablet Erica 2015 - s by mouth Sohan 05/22/ every day M.D. 2017 Sudanyl 09/06/ Hx Tablets 30mg 30tab 2 tab by J01.90 Erica 2015 - s mouth every 4 Sohan 12/12/ hours, but M.D. 2018 not close to bedtime Metronidazole 05/31/ Hx Tablets 500mg 4tabs take 4 A59.01 Erica 2014 - tablets Sohan 06/24/ together po M.D. 2014 x1 Diflucan 04/29/ Hx Tablets 150mg 2tabs 1 tab by Erica 2014 - mouth once no Sohan, and then M.D. 2014 repeat in 1 [...] F17.210 Erica 2014 twice a day Sohan .DPhilip 2014 Chantix 04/28/ Hx Tablets 0.5mg 49tab 1 tab po 2x F17.210 Erica 2014 per day for 7 ,then 2 M.D. 2014 tab po 2x per day for 21 days Chantix 04/28/ Hx Tablets 53tab as directed Erica 2014 Kamar Parry M.DPhilip 2014 Ibuprofen 03/17/ Hx Tablets 600mg 90tab three times a 840.9 Erica 2014 day as needed Sohan M.DPhilip 2014 Ibuprofen 03/17/ Hx Tablets 600mg 90tab three times a 840.9 Kathrine 2014 day as needed Antoine .DPhilip 2016 No Active Hx Unknown Medications 2014 - 2014 Tamiflu 09/28/ Hx Capsules 75mg 10cap 1 by mouth 488.11 Erica 2014 twice a day Sohan .DPhilip 2014 Wrist Splint 10/08/ Hx Misc 1unit rt splint 842.09 Kathrine 2013 neutral Antoine, 09/28/ medium dx M.DPhilip 2015 code 8420.09 Naproxen 10/08/ Hx Tablets 500mg 60tab 1 po bid prn 842.09 Erica 2013 - Sohan 09/28/ M.DPhilip 2014 Ibuprofen 06/23/ Hx Tablets 600mg 45tab three times a 840.9 Erica 2012 - day as needed Sohan 09/28/ M.DPhilip 2014 No Active 02/23/ Hx Unknown Medications 2012 - 2012 Proair HFA 02/23/ Hx Aerosol 108(90Bas 1unit 2 puffs every 493.10 Kathrine 2012 - e) s 4-6 hrs as Antoine, 09/28/ mcg/Act needed M.D. 2014 Ibuprofen 02/23/ Hx Tablets 400mg 90tab 1 by mouth q 625.3 Kathrine 2012 - 8hr prn Antoine 10/08/ M.DPhilip 2013 Vital Signs Date Vital [...] [address]: Erica Parry MD Acct: [id number] Unit: [id number] AGE: 50 Location: [facility] Re04/28/15 SEX: F Status: REG REF SPEC: [id number] GUIDO: 04/28/[address]: Erica Parry MD REQ: [id number] RECD: 04/28/15 STATUS: COMP _ SOURCE: VAGINAL [...] therapeutic success or failure. * ML - [facility] . END OF REPORT * ML=Testing performed at Main Lab DEPARTMENT OF PATHOLOGY, [address] [place] [address] Delano Mcdaniel M.D. Director [facility] # [id number] 5 GC/Chlamydia Source?: Thin Prep HPV Source?: Thin Prep Trichomonas Source: Thin Prep 6 The high-risk HPV types detected by the assay include: 16, 18, 31, 33, 35, 39, 45, 51, 52, 56, 58, 59, 66, and 68. 7 Female urine specimens have been self-validated by [facility] and have been granted conditional assay approval by [facility]. 8 SEE RESULT BELOW Name: LETY SCHWAB : [address]: Erica Parry MD Acct: [id number] Unit: [id number] AGE: 50 Location: [facility] Re04/28/15 SEX: F Status: REG REF SPEC: [id number] GUIDO: 04/28/15-[address] [facility] [address]: Erica Parry MD REQ: [id number] RECD: 04/28/15 STATUS: SOUT _ ORDERED: IMAGE [...] Signed (signature on file) Robe Schumacher 04/29/15 4156 This Pap test was evaluated with the assistance of the E-TEK DynamicsPrep Test Imaging System. Due to cytologic findings at the ground instructor basic microscope, comprehensive manual rescreening by a Resource Engineer may be required. The Pap Smear is [...] performed at Main Lab DEPARTMENT OF PATHOLOGY, [address] [place] [address] Delano Mcdaniel M.D. Director [facility] # [id number] Procedures Date CPT Code Description Status 05/22/2017 Mammogram Completed 05/18/2015 Mammogram Completed Encounters Type Date Location Provider CPT E/M Dx Office Visit 05/22/2017 10:20a [facility] Internal SANJANA Desai [address] F17.210 Medicine - [address] M25.571 Office Visit 04/17/2017 2:40p [facility] Internal Medicine SANJANA Desai [address] Z00.00 - [address] F17.210 R23.9 J30.9 N94.6 Z13.220 N95.1 Z12.11 Z12.31 Office Visit 09/06/2015 11:00a [facility] Internal Medicine Erica Parry M.D. 04035 J01.90 - [place] R23.9 Office Visit 05/31/2015 11:00a [facility] Internal Medicine Erica Parry M.D. 63570 N95.1 - [place] A59.01 N64.59 F17.201 Office Visit 04/28/2015 1:00p [facility] Internal Medicine Erica Parry M.D. 88868 Z00.00 - [place] N95.1 Z12.31 Z12.4 R53.83 Z82.49 F17.210 Office Visit 09/28/2014 1:00p [facility] Internal Medicine Erica Parry M.D. 58214 488.11 - [place] 784.1 487.1 Office Visit 11/17/2013 2:00p [facility] Internal Medicine Erica Parry M.D. 80198 923.3 - [place] 842.13 Office Visit 10/22/2013 4:20p [facility] Internal Medicine Erica Parry M.D. 56322 842.09 - [place] 842.09 Office Visit 10/08/2013 3:40p [facility] Internal Medicine Erica Parry M.D. 56198 842.09 - [place] 923.3 Office Visit 06/23/2013 1:40p [facility] Internal Medicine Erica Parry M.D. 96733 955.2 - [place] 840.9 V76.19 Office Visit 02/23/2013 1:50p [facility] Internal Medicine Kathrine Schultz 58641 493.10 - Ivory Saleh 305.1 625.3 Plan of Care 12/12/2017 - Kathrine Schultz M.D.M25.561 Pain in right kneeComments:I am sending you to a specialist for an evaluation of your knee painReferral:Brett Wilson MD, Sports Med/Ortho Surg
[2018-01-05] MEDS ORDERED: Ibuprofen TAB* 800 MG PO ONE (11:46)
--- NOTE | 2018-01-05 12:39 | RAD ---
INDICATION: Left knee pain COMPARISON: None TECHNIQUE: 4 view radiograph of the left knee, 3 views of the left ankle and 3 views of the left foot were obtained. FINDINGS: Knee: Immediately above the medial tibial spine there is a bony focus measuring 2 mm. This is seen on the lateral view as well. The remaining bones of the left knee are intact and appropriately aligned. There is a small left knee joint effusion. Ankle: Immediately inferior to the distal tip of the left tibial malleolus, on the oblique view, there is a punctate bony focus. The remaining bones of the left ankle are intact and appropriately aligned. The ankle mortise is symmetric. Foot: The bones of the left foot are intact and appropriately aligned. There is no radiographically apparent fracture or dislocation. IMPRESSION: 1. There is a bony focus immediately superior to the medial tibial spine on the knee radiographs. This appears to be well corticated and therefore a chronic finding but a nondisplaced avulsion injury is within the differential in the presence of a small left knee joint effusion. 2. Immediately adjacent to the distal tip of the tibial malleolus is a punctate bony focus which could be seen in the setting of an avulsion fracture. Please correlate to the focality of the patient's ankle pain. If the patient's symptoms persist, follow-up imaging is recommended.
[2018-01-05 13:16] VITALS: BP 120/84
--- NOTE | 2018-01-05 17:56 | ED ---
Lower Extremity - HPI Summary HPI Summary: Patient is a 52-year-old female who presents emergency department for left lower leg injury after fall that occurred early this morning. Patient states she was out last night and when she got dropped off at her house she slipped down the road injured left leg. States she is in too much pain to ambulate. Associated symptoms of abrasion to left leg. Denies head injury or loss of consciousness. No other injuries were sustained. Symptoms are mild in severity. No significant past medical history. - History of Current Complaint Chief Complaint: EDExtremityLower Stated Complaint: FALL/LT LOWER EXTERMITY PAIN Time Seen by Provider: 01/05/18 11:15 Hx Obtained From: Patient Hx Last Menstrual Period: 2 wks ago Pain Intensity: 5 Pain Scale Used: 0-10 Numeric - Allergies/Home Medications Allergies/Adverse Reactions: Allergies Allergy/AdvReac Type Severity Reaction Status Date / Time latex Allergy Itching Verified 01/05/18 10:38 PMH/Surg Hx/FS Hx/Imm Hx Previously Healthy: Yes Endocrine/Hematology History: Denies: Hx Diabetes Cardiovascular History: Denies: Hx Hypertension, Hx Pacemaker/ICD Respiratory History: Reports: Hx Asthma History: Denies: Hx Renal Disease Sensory History: Denies: Hx Hearing Aid Psychiatric History: Denies: Hx Panic Disorder - Cancer History Hx Chemotherapy: No Hx Radiation Therapy: No - Surgical History Surgery Procedure, Year, and Place: tonsils; tubal ligation Infectious Disease History: No Infectious Disease History: Denies: Traveled Outside the [place] in Last 30 Days - Family History Known Family History: Positive: None - Social History Occupation: Works From/At Home Lives: With Family Alcohol Use: Daily Hx Substance Use: No Substance Use Type: Reports: None Hx Tobacco Use: Yes Smoking Status (MU): Former Smoker Review of Systems Positive: Other - left knee, ankle and foot pain All Other Systems Reviewed And Are Negative: Yes Physical Exam Triage Information Reviewed: Yes Vital Signs On Initial Exam: Initial Vitals Temp Pulse Resp BP Pulse Ox 98 F 89 17 120/83 100 01/05/18 10:35 01/05/18 10:35 01/05/18 10:35 01/05/18 10:35 01/05/18 10:35 Vital Signs Reviewed: Yes Appearance: Positive: Pain Distress - Patient lying in bed, appears in pain but nontoxic. Tearful at times Skin: Positive: Warm, Dry, Other - Superficial abrasions overlying left knee, ankle and toes. Head/Face: Positive: Normal Head/Face Inspection Eyes: Positive: Normal Neck: Positive: Supple Musculoskeletal: Positive: Other - Examination to the left knee and lateral ankle and distal foot. Joints appear stable without increase in laxity. Exam is limited secondary to patient's pain. Neurological: Positive: Normal, CN Intact II-III Psychiatric: Positive: Affect/Mood Appropriate Diagnostics - Vital Signs Vital Signs Temp Pulse Resp BP Pulse Ox 01/05/18 13:16 98.4 F 70 16 120/84 100 01/05/18 10:35 98 F 89 17 120/83 100 - Laboratory Lab Statement: Any lab studies that have been ordered have been reviewed, and results considered in the medical decision making process. Lower Extremity Course/Dx - Course Course Of Treatment: Patient presenting with a left knee, ankle and foot injury and superficial abrasions after falling last night. Ankle reading per radiology shows a bony fragment to the distal tip of the lateral malleolus concerning for an avulsion fracture. Ankle was reexamined and patient has no medial tenderness in all of her pain is lateral. Knee x-ray shows a bony fragment to the medial tibial spine. Patient's knee pain is diffuse. Will place her in a knee immobilizer and crutches for questionable avulsion fracture. She was given information for orthopedics and is to call the office tomorrow for an appointment. Wounds were cleaned and dressed. Advised Tylenol or Motrin for pain as directed. To ice and elevate affected areas. We'll return to the ER if symptoms change or worsen. Patient understands and agrees with this plan. - Diagnoses Differential Diagnosis/HQI/PQRI: Positive: Fracture (Closed), Sprain, Strain Provider Diagnoses: Avulsion fracture, Ankle sprain, Foot sprain, Abrasion Discharge - Sign-Out/Discharge Documenting (check all that apply): Discharge/Admit/Transfer - Discharge Plan Condition: Good Disposition: HOME Patient Education Materials: Ankle Sprain (ED), Abrasion (ED), Avulsion Fracture (ED) Forms: *Work Release Referrals: Bam Samayoa MD [Primary Care Provider] - Remberto Crandall MD [Medical Doctor] - Additional Instructions: Schedule a follow up appointment with orthopedics, Dr. Crandall Keep wounds clean and dry Ice and elevate affected areas Tylenol or Motrin for pain as directed Return to ER if symptoms change or worsen - Billing Disposition and Condition Condition: GOOD Disposition: Home
== END 2018-01-05 13:16 | disposition home or self-care (01) ==
LOC: ED 10:20
DX: S89.92XA Unspecified injury of left lower leg, initial encounter (principal); S93.402A Sprain of unspecified ligament of left ankle, initial encounter; S93.602A Unspecified sprain of left foot, initial encounter; S80.212A Abrasion, left knee, initial encounter; S90.512A Abrasion, left ankle, initial encounter; S90.415A Abrasion, left lesser toe(s), initial encounter; W01.0XXA Fall on same level from slipping, tripping and stumbling without subsequent striking against object, initial encounter; Y92.488 Other paved roadways as the place of occurrence of the external cause; Z87.891 Personal history of nicotine dependence
CPT/HCPCS: 99282; A9270-GY

== ENCOUNTER 2018-06-01 06:13 | Emergency (ER) | payer OTHER ==
[2018-06-01] MEDS ORDERED: NS 0.9% 1000 ML* 1,000 ML IV ONE (07:19)
[2018-06-01] MEDS ORDERED: guaiFENesin ER TAB 600 MG PO ONE (07:19)
[2018-06-01] MEDS ORDERED: guaiFENesin/CODIEN 100MG-10MG* 5 ML UDC PO ONE (07:19)
[2018-06-01] MEDS ORDERED: predniSONE TAB* 20 MG PO ONE (07:19)
[2018-06-01] MEDS ORDERED: Amoxicillin/Clavulanate TAB* 875 MG PO ONE (07:20)
[2018-06-01 07:44] LABS: ABS Basophils 0 10^3/ul (0-0.2); ABS Eosinophils 0.7 10^3/ul (0-0.6); ABS Monocytes 1.1 10^3/ul (0-0.8); ABS Neutrophils 4.2 10^3/ul (1.5-7.7); ABS Nucleated RBC 0 10^3/ul; Eosinophil % 9.5 % (0-6); Hematocrit 46 % (35-47); Hemoglobin 15.5 g/dl (12.0-16.0); Lymphocyte % 13.9 % (25-47); Mean Corpuscular HGB Conc 34 g/dl (31-36); Mean Corpuscular Hemoglobin 32 pg (27-31); Mean Corpuscular Volume 93 fL (80-97); Mean Platelet Volume 7.8 fL (7.4-10.4); Nucleated Red Blood Cells % 0.1; Platelet Count 305 10^3/ul (150-450); Red Blood Count 4.89 10^6/ul (4.00-5.40); Red Cell Distribution Width 13 % (10.5-15)
--- NOTE | 2018-06-01 07:53 | ED ---
Throat Pain/Nasal Congestion - HPI Summary HPI Summary: Patient is a 53-year-old female with no significant PMH percent to the ED with a 2 week history of worsening cough, congestion, copious rhinorrhea, headache and bilateral conjunctival injection and tearing. Cough is nonproductive and dry. She states she is unable to breathe through her nose. Endorses some difficulty breathing at times, but denies any SOB. Denies any chest pain. Denies any abdominal pain. Denies any known sick contacts. Patient states she has been having some night sweats, however she is currently going through menopause as well. She has been taking Sudafed at home without relief. She also endorses a 10 pound weight loss over the past 2 weeks she has been unable to eat due to her cough and congestion symptoms. She denies any fevers or chills. - History of Current Complaint Chief Complaint: EDGeneral Time Seen by Provider: 06/01/18 07:15 Hx Obtained From: Patient Onset/Duration: Sudden Onset Severity: Moderate Associated Signs And Symptoms: Positive: Negative Cough: Nonproductive - Epiglottits Risk Factors Epiglottis Risk Factors: Negative - Allergies/Home Medications Allergies/Adverse Reactions: Allergies Allergy/AdvReac Type Severity Reaction Status Date / Time latex Allergy Itching Verified 06/01/18 06:45 PMH/Surg Hx/FS Hx/Imm Hx Previously Healthy: Yes Endocrine/Hematology History: Denies: Hx Diabetes Cardiovascular History: Denies: Hx Hypertension, Hx Pacemaker/ICD Respiratory History: Reports: Hx Asthma History: Denies: Hx Renal Disease Sensory History: Denies: Hx Hearing Aid Psychiatric History: Denies: Hx Panic Disorder - Cancer History Hx Chemotherapy: No Hx Radiation Therapy: No - Surgical History Surgery Procedure, Year, and Place: tonsils; tubal ligation - Immunization History Hx Pertussis Vaccination: No Immunizations Up to Date: Yes Infectious Disease History: No Infectious Disease History: Denies: Traveled Outside the [place] in Last 30 Days - Family History Known Family History: Positive: None - Social History Occupation: Employed Full-time Lives: With Family Alcohol Use: Occasionally Hx Substance Use: No Substance Use Type: Reports: None Hx Tobacco Use: Yes Smoking Status (MU): Former Smoker Review of Systems Negative: Fever, Chills, Fatigue, Skin Diaphoresis Positive: Drainage, Erythema. Negative: Photophobia, Blurred Vision, Diplopia Positive: Sore Throat, Nasal Discharge Negative: Palpitations, Chest Pain Positive: Shortness Of Breath, Cough Negative: Abdominal Pain, Vomiting, Diarrhea, Nausea Negative: Arthralgia, Myalgia Negative: Rash, Bruising Positive: Headache. Negative: Weakness Psychological: Normal All Other Systems Reviewed And Are Negative: Yes Physical Exam Triage Information Reviewed: Yes Vital Signs On Initial Exam: Initial Vitals Temp Pulse Resp BP Pulse Ox 98.1 F 100 18 138/87 97 06/01/18 06:41 06/01/18 06:41 06/01/18 06:41 06/01/18 06:41 06/01/18 06:41 Vital Signs Reviewed: Yes Appearance: Positive: Well-Nourished, Ill-Appearing Skin: Positive: Warm, Skin Color Reflects Adequate Perfusion Head/Face: Positive: Normal Head/Face Inspection Eyes: Positive: Conjunctiva Inflammed, Discharge - clear fluid Neck: Positive: Supple, No Lymphadenopathy Respiratory/Lung Sounds: Positive: Clear to Auscultation, Breath Sounds Present Cardiovascular: Positive: RRR, Pulses are Symmetrical in both Upper and Lower Extremities Musculoskeletal: Positive: Normal, Strength/ROM Intact Neurological: Positive: Speech Normal Psychiatric: Positive: Normal, Affect/Mood Appropriate AVPU Assessment: Alert Diagnostics - Vital Signs Vital Signs Temp Pulse Resp BP Pulse Ox 06/01/18 06:41 98.1 F 100 18 138/87 97 - Laboratory Lab Results: Lab Results 06/01/18 Range/Units 07:24 WBC 7.0 (3.5-10.8) 10^3/ul RBC 4.89 (4.00-5.40) 10^6/ul Hgb 15.5 (12.0-16.0) g/dl Hct 46 (35-47) % MCV 93 (80-97) fL MCH 32 H (27-31) pg MCHC 34 (31-36) g/dl RDW 13 (10.5-15) % Plt Count 305 (150-450) 10^3/ul MPV 7.8 (7.4-10.4) fL Neut % (Auto) 60.8 (38-83) % Lymph % (Auto) 13.9 L (25-47) % Carver % (Auto) 15.3 H (0-7) % Eos % (Auto) 9.5 H (0-6) % Baso % (Auto) 0.5 (0-2) % Absolute Neuts (auto) 4.2 (1.5-7.7) 10^3/ul Absolute Lymphs (auto) 1.0 (1.0-4.8) 10^3/ul Absolute Monos (auto) 1.1 H (0-0.8) 10^3/ul Absolute Eos (auto) 0.7 H (0-0.6) 10^3/ul Absolute Basos (auto) 0 (0-0.2) 10^3/ul Absolute Nucleated RBC 0 10^3/ul Nucleated RBC % 0.1 Result Diagrams: 06/01/18 07:24 06/01/18 07:24 Lab Statement: Any lab studies that have been ordered have been reviewed, and results considered in the medical decision making process. Re-Evaluation - Re-Evaluation First Eval Change: Improved - patient feeling improved after medications and fluid EENT Course/Dx - Course Course Of Treatment: During the course of treatment, the patient is evaluated for cough, congestion, rhinorrhea and headache. On physical examination, patient is ill-appearing, conjunctival injection with tearing bilaterally, nasal congestion with nasal pressure and pain on palpation to the maxillary sinuses. No pain to the frontal sinuses. TMs non-erythematous with no pus pocket and positive cone of light. Throat pain and difficulty with breathing intermittently. No pharyngeal erythema. Mallampati score 1. Chest x-ray obtained. Labs are obtained. She is given prednisone, Robitussin with codeine , Mucinex and fluids. She is feeling slightly improved. Chest x-ray shows a possible viral pneumonia. Labs all WNL. She will be diagnosed with viral pneumonia and sinusitis. She is given prednisone, Robitussin with codeine, Flonase, Augmentin. She is also encouraged egrx-frl-kovnbgb Sudafed. She is given a note for work 2 days and is encouraged to return for any worsening or changing symptoms. - Diagnoses Provider Diagnoses: Viral pneumonia, Sinusitis Discharge - Sign-Out/Discharge Documenting (check all that apply): Patient Departure - Discharge Plan Condition: Stable Disposition: HOME Prescriptions: Amoxicillin/Clavulanate TAB* [Augmentin TAB 875*] 875 mg PO BID #14 tab Fluticasone NASAL SPRAY 50MCG* [Flonase NASAL SPRAY 50MCG*] 2 spray BOTH NARES DAILY #1 btl guaiFENesin/CODIEN 100MG-10MG* [Robitussin AC 100Mg-10Mg*] 10 ml PO BEDTIME # 120 udc MDD 10 predniSONE TAB* [Deltasone TAB*] 50 mg PO DAILY #5 tab Patient Education Materials: Viral Pneumonia (ED), Sinusitis (ED) Forms: *Work Release Referrals: Bam Samayoa MD [Primary Care Provider] - Additional Instructions: Augmentin twice daily 7 days, next dose is this evening Flonase 2 sprays each nare up to 3 times daily Aquu-xjr-taattxb Sudafed twice daily Robitussin with codeine up to every 6 hours, may use 2 teaspoons at a time Prednisone - 1 tab in the morning x 5 days (start tomorrow morning!) You may supplement with nwxo-nye-horzdxb cough medications Echinacea and vitamin C will help speed the recovery process Rest as much as possible Drink plenty of fluids If any symptoms become worse, return to the ED immediately - Billing Disposition and Condition Condition: STABLE Disposition: Home
[2018-06-01 08:29] LABS: EGFR Non-African American 74.5 (>60)
--- NOTE | 2018-06-01 08:30 | RAD ---
INDICATION: Cough x2 weeks COMPARISON: Most recent comparison chest x-ray is dated April 27, 2006 TECHNIQUE: PA and lateral views of the chest were obtained. FINDINGS: The heart and mediastinum are normal in size and contour. The lungs exhibit symmetrical increased parenchymal density bilaterally without focal or lobar consolidation. Depicted better on the lateral view images there is a mild degree of peribronchial cuffing. There is no evidence of large pleural effusion. Visualized bones are normal for the patient's age. There is no radiographic evidence of free air beneath the diaphragm IMPRESSION: DEPENDING ON THE SPECIFICS OF THE PATIENT'S CLINICAL PRESENTATION THE CHEST X-RAY FINDINGS COULD BE COMPATIBLE WITH VIRAL PNEUMONIA AND/OR INFLAMMATORY LUNG DISEASE.
[2018-06-01 10:21] VITALS: BP 131/85
== END 2018-06-01 10:20 | disposition home or self-care (01) ==
LOC: ED 06:13
DX: J12.9 Viral pneumonia, unspecified (principal); J32.9 Chronic sinusitis, unspecified; J45.909 Unspecified asthma, uncomplicated; Z87.891 Personal history of nicotine dependence
CPT/HCPCS: 36415; 71046; 80053; 85025; 96360; 99282; A9270-GY; J7512

== ENCOUNTER 2018-07-10 12:59 | Emergency (ER) | payer OTHER ==
[2018-07-10 14:27] VITALS: BP 121/76
--- NOTE | 2018-07-11 16:55 | ED ---
Lower Extremity - HPI Summary HPI Summary: Patient is a 53-year-old female presenting to the ED with chief complaint of foreign body in the left foot. She states she feels she may have stepped on a piece of glass, but does not recall. She states the pain has been worse over the past few days and worse with ambulation. Better with rest. During palpation and pressure are painful. She does not recall a known injury. She denies any erythema, numbness or tingling, or swelling. - History of Current Complaint Chief Complaint: EDExtremityLower Stated Complaint: LEFT FOOT INJURY Time Seen by Provider: 07/10/18 13:07 Hx Obtained From: Patient Hx Last Menstrual Period: 2 wks ago Onset of Pain: Days Onset/Duration: Days Severity Initially: Moderate Severity Currently: Moderate Pain Intensity: 0 Pain Scale Used: 0-10 Numeric Timing: Constant Location: Is Discrete @ - right plantar surface of MCP joint FB Associated Signs And Symptoms: Negative: Swelling, Redness, Bruising Aggravating Factor(s): Standing, Ambulation Related History: Occupational Injury - Risk Factors Gout Risk Factors: Negative DVT Risk Factors: Negative Septic Arthritis Risk Factor: Negative - Allergies/Home Medications Allergies/Adverse Reactions: Allergies Allergy/AdvReac Type Severity Reaction Status Date / Time latex Allergy Itching Verified 07/10/18 13:03 Home Medications: Home Medications NK [No Home Medications Reported] 07/10/18 [History Confirmed 07/10/18] PMH/Surg Hx/FS Hx/Imm Hx Previously Healthy: Yes Endocrine/Hematology History: Denies: Hx Diabetes Cardiovascular History: Denies: Hx Hypertension, Hx Pacemaker/ICD Respiratory History: Reports: Hx Asthma History: Denies: Hx Renal Disease Sensory History: Denies: Hx Hearing Aid Psychiatric History: Denies: Hx Panic Disorder - Cancer History Hx Chemotherapy: No Hx Radiation Therapy: No - Surgical History Surgery Procedure, Year, and Place: tonsils; tubal ligation - Immunization History Hx Pertussis Vaccination: No Immunizations Up to Date: Yes Infectious Disease History: No Infectious Disease History: Denies: Traveled Outside the [place] in Last 30 Days - Family History Known Family History: Positive: None - Social History Occupation: Unemployed Lives: With Family Alcohol Use: Occasionally Hx Substance Use: No Substance Use Type: Reports: None Hx Tobacco Use: Yes Smoking Status (MU): Heavy Every Day Tobacco Smoker Review of Systems Negative: Fever, Chills, Skin Diaphoresis Negative: Palpitations, Chest Pain Negative: Shortness Of Breath, Cough Genitourinary: Negative Positive: no symptoms reported, see HPI Positive: Arthralgia - left MCP joing pain on plantar surface of the foot - poss FB Skin: Negative Neurological: Negative All Other Systems Reviewed And Are Negative: Yes Physical Exam Triage Information Reviewed: Yes Vital Signs On Initial Exam: Initial Vitals Temp Pulse Resp BP Pulse Ox 98.3 F 105 18 119/80 97 07/10/18 13:02 07/10/18 13:02 07/10/18 13:02 07/10/18 13:02 07/10/18 13:02 Vital Signs Reviewed: Yes Appearance: Positive: No Pain Distress Skin: Positive: Warm, Skin Color Reflects Adequate Perfusion Head/Face: Positive: Normal Head/Face Inspection Eyes: Positive: EOMI, LUIS, Conjunctiva Clear Neck: Positive: No Lymphadenopathy Respiratory/Lung Sounds: Positive: Clear to Auscultation, Breath Sounds Present Cardiovascular: Positive: Pulses are Symmetrical in both Upper and Lower Extremities Musculoskeletal: Positive: Pain @ - left MCP joing pain on plantar surface of the foot - poss FB Neurological: Positive: Sensory/Motor Intact, Alert, Oriented to Person Place, Time Psychiatric: Positive: Normal Diagnostics - Vital Signs Vital Signs Temp Pulse Resp BP Pulse Ox 07/10/18 14:26 98.3 F 97 16 121/76 99 07/10/18 13:02 98.3 F 105 18 119/80 97 - Laboratory Lab Statement: Any lab studies that have been ordered have been reviewed, and results considered in the medical decision making process. Lower Extremity Course/Dx - Course Course Of Treatment: Patient is evaluated for left foot pain. She endorses pain over the pad of the MCP joint on the plantar surface of the foot. She thinks there is a piece of glass in it, but does not recall stepping on glass or concern for another foreign object. Denies any injury. She states the pain began approximately a week ago and has been getting worse. On physical examination, there is no erythema, swelling or ecchymosis. No evidence of trauma. No laceration to the area. Large callus to the area. On x-ray impression: No foreign body. No evidence of foreign body on exam. Discussed this with patient who still believes there is a 4 body. I have referred her to orthopedics as well as a rolling machine operator for further evaluation of this. She is okay with this plan at discharge. - Diagnoses Provider Diagnoses: Foot pain Discharge - Sign-Out/Discharge Documenting (check all that apply): Patient Departure - Discharge Plan Condition: Stable Disposition: HOME Referrals: Francesco Cano MD [Medical Doctor] - Bam Samayoa MD [Primary Care Provider] - Additional Instructions: No Foreign Body Follow up with ortho OR podiatry Dr. Cedillo [phone] - Billing Disposition and Condition Condition: STABLE Disposition: Home
== END 2018-07-10 14:26 | disposition home or self-care (01) ==
LOC: ED 12:59
DX: M79.672 Pain in left foot (principal); Z91.040 Latex allergy status; F17.200 Nicotine dependence, unspecified, uncomplicated
CPT/HCPCS: 99282

== ENCOUNTER 2018-09-20 14:33 | Emergency (ER) | payer OTHER ==
--- NOTE | 2018-09-20 15:33 | ED ---
Shortness of Breath - HPI Summary HPI Summary: This patient is a 53 year old F presenting to [facility] with a chief complaint of productive cough accompanied by SOB since 2 days ago. The patient rates the pain 10/10 in severity. Patient reports CP and congestion. Patient denies LE edema, abd pain, and fever. The patient had PNA recently, one month ago, but is not currently on antibiotics. PMHX asthma. No PMHx emphysema. SHX marijuana use. No SHx tobacco use. RX Albuterol inhaler. - History of Current Complaint Chief Complaint: EDGeneral Time Seen by Provider: 09/20/18 15:17 Hx Obtained From: Patient Onset/Duration: Gradual Onset, Lasting Days - 2 Current Severity: Severe - 10/10 pain Dyspnea At: Rest Aggrevating Factors: Other - cough Associated Signs & Symptoms: Cough (Productive), Chest Pain w/Cough, Nasal Congestion - Allergy/Home Medications Allergies/Adverse Reactions: Allergies Allergy/AdvReac Type Severity Reaction Status Date / Time latex Allergy Itching Verified 08/30/18 23:18 Home Medications: Home Medications Albuterol HFA INHALER* [Ventolin HFA Inhaler*] 1 puff PO TID PRN 09/20/18 [ History Confirmed 09/20/18] PMH/Surg Hx/FS Hx/Imm Hx Endocrine/Hematology History: Denies: Hx Diabetes Cardiovascular History: Denies: Hx Hypertension, Hx Pacemaker/ICD Respiratory History: Reports: Hx Asthma History: Denies: Hx Renal Disease Sensory History: Denies: Hx Legally Blind, Hx Deafness, Hx Hearing Aid Opthamlomology History: Denies: Hx Legally Blind Neurological History: Denies: Hx Dementia Psychiatric History: Denies: Hx Panic Disorder - Cancer History Hx Chemotherapy: No Hx Radiation Therapy: No - Surgical History Surgery Procedure, Year, and Place: tonsils; tubal ligation Infectious Disease History: No Infectious Disease History: Denies: Traveled Outside the [place] in Last 30 Days - Family History Known Family History: Positive: Other - asthma - Social History Alcohol Use: Occasionally Hx Substance Use: Yes Substance Use Type: Reports: Marijuana Hx Tobacco Use: No Smoking Status (MU): Former Smoker Review of Systems Negative: Fever Positive: Other - congestion Positive: Chest Pain Positive: Shortness Of Breath, Cough Negative: Abdominal Pain Negative: Edema - LE All Other Systems Reviewed And Are Negative: Yes Physical Exam - Summary Physical Exam Summary: Appearance: Well appearing, no pain distress Skin: warm, dry, reflects adequate perfusion Head/face: normal Eyes: EOMI, LUIS ENT: normal Neck: supple, non-tender Respiratory: Bilateral wheezing. Cardiovascular: RRR, pulses symmetrical Abdomen: non-tender, soft Musculoskeletal: normal, strength/ROM intact Neuro: normal, sensory motor intact, A&Ox3 Triage Information Reviewed: Yes Vital Signs On Initial Exam: Initial Vitals Temp Pulse Resp BP Pulse Ox 98.9 F 111 18 127/91 94 09/20/18 14:35 09/20/18 14:35 09/20/18 14:35 09/20/18 14:35 09/20/18 14:35 Vital Signs Reviewed: Yes Diagnostics - Vital Signs Vital Signs Temp Pulse Resp BP Pulse Ox 09/20/18 14:35 98.9 F 111 18 127/91 94 - Laboratory Result Diagrams: 09/20/18 16:29 09/20/18 16:29 Lab Statement: Any lab studies that have been ordered have been reviewed, and results considered in the medical decision making process. - Radiology CXR Radiology Interpretation Completed By: Radiologist Summary of Radiographic Findings: no active cardiopulmonary disease. ED physician has reviewed this radiology report. - EKG 14:41 Cardiac Rate: NL - 98 bpm EKG Rhythm: Sinus Rhythm Summary of EKG Findings: no acute change Course/Dx - Course Course Of Treatment: This patient is a 53 year old F presenting to [facility] with a chief complaint of productive cough accompanied by SOB since 2 days ago. The patient rates the pain 10/10 in severity. Patient reports CP and congestion. Patient denies LE edema, abd pain, and fever. An EKG reveals NSR 98 bpm, no acute changes. CXR reveals, per radiologist, no active cardiopulmonary disease. ED physician has reviewed this radiology report. Blood work/UA obtained. In the ED course the patient was given Albuterol, Azithromycin, and Methylprednisone. Patient will be discharged with prescription for Albuterol, Azithromycin, and Prednisone and follow up from Dr. Samayoa. The patient is agreeable with this plan. - Diagnoses Differential Diagnosis/HQI/PQRI: Positive: Asthma, Bronchitis, CHF, COPD Exacerbation, Pneumonia Provider Diagnoses: Asthma exacerbation, Bronchitis Discharge - Sign-Out/Discharge Documenting (check all that apply): Patient Departure - discharge Patient Received Moderate/Deep Sedation with Procedure: No - Discharge Plan Condition: Stable Disposition: HOME Prescriptions: Albuterol HFA INHALER* [Ventolin HFA Inhaler*] 2 puff INH Q6H PRN #1 mdi MDD 4 PRN Reason: Sob/Wheezing Azithromycin TAB* [Zithromax TAB (Z-SANDRA) 250 mg #6 tabs] 250 mg PO DAILY #4 tab predniSONE TAB* [Deltasone 20 MG TAB*] 40 mg PO DAILY #8 tab Patient Education Materials: Asthma (ED), Acute Bronchitis (ED) Forms: *Work Release Referrals: Bam Samayoa MD [Primary Care Provider] - 3 Days Additional Instructions: Follow up with Dr. Samayoa in the next 3 days. - Billing Disposition and Condition Condition: STABLE Disposition: Home - Attestation Statements Document Initiated by Sahil: Yes Documenting Scribe: Amadeo Dubois Provider For Whom Sahil is Documenting (Include Credential): Rashad Draper MD Scribe Attestation: Amadeo White scribed for Rashad Draper MD on 09/20/18 at 1858. Scribe Documentation Reviewed: Yes Provider Attestation: The documentation as recorded by the Amadeo santos accurately reflects the service I personally performed and the decisions made by , Rashad Draper MD Status of Scribe Document: Viewed
[2018-09-20] MEDS ORDERED: methylPREDNISolone 125 MG* 2 ML VIAL IV ONE (15:34)
[2018-09-20] MEDS ORDERED: Albuterol/Ipratropium NEB.SOL* Albuterol 2.5 MG/Ipratropium 0.5 MG 3 ML INH ONE (15:34)
[2018-09-20 16:07] LABS: Influenza A Molecular NEGATIVE (Negative); Influenza B Molecular NEGATIVE (Negative)
[2018-09-20 16:40] LABS: ABS Basophils 0.1 10^3/ul (0-0.2); ABS Eosinophils 0.8 10^3/ul (0-0.6); ABS Lymphocytes 2.2 10^3/ul (1.0-4.8); ABS Monocytes 1.4 10^3/ul (0-0.8); ABS Neutrophils 6.5 10^3/ul (1.5-7.7); ABS Nucleated RBC 0 10^3/ul; Eosinophil % 6.9 %; Hematocrit 44 % (35-47); Hemoglobin 14.9 g/dl (12.0-16.0); Lymphocyte % 19.9 %; Mean Corpuscular HGB Conc 34 g/dl (31-36); Mean Corpuscular Hemoglobin 32 pg (27-31); Mean Corpuscular Volume 93 fL (80-97); Mean Platelet Volume 7.6 fL (7.4-10.4); Nucleated Red Blood Cells % 0.1; Platelet Count 294 10^3/ul (150-450); Red Cell Distribution Width 13 % (10.5-15); White Blood Count 10.9 10^3/ul (3.5-10.8)
[2018-09-20 16:48] LABS: Activated Partial Thrombo Time 32.7 seconds (26.0-36.3); INR 1.05 (0.77-1.02)
[2018-09-20 16:57] LABS: Albumin 4.6 g/dL (3.2-5.2); Albumin/Globulin Ratio 1.5 (1-3); BUN/Creatinine Ratio 16.5 (8-20); Calcium 9.3 mg/dL (8.6-10.3); EGFR African American 78.9 (>60); EGFR Non-African American 65.2 (>60); Potassium 3.9 mmol/L (3.5-5.0); Total Bilirubin 0.5 mg/dL (0.2-1.0); Total Protein 7.6 g/dL (6.4-8.9)
[2018-09-20 18:32] VITALS: BP 124/76
[2018-09-20] MEDS ORDERED: Azithromycin TAB* 250 MG PO ONE (18:39)
== END 2018-09-20 18:35 | disposition home or self-care (01) ==
LOC: ED 14:33
DX: R05 Cough (principal); R07.9 Chest pain, unspecified; R09.81 Nasal congestion; Z87.891 Personal history of nicotine dependence; J45.901 Unspecified asthma with (acute) exacerbation; J40 Bronchitis, not specified as acute or chronic
CPT/HCPCS: 36415; 71045; 80053; 83880; 84484; 85025; 85610; 85730; 93005; 96374; 99283; A9270-GY; J2930

== ENCOUNTER 2018-11-15 10:55 | Emergency (ER) | payer OTHER ==
--- OUTSIDE RECORDS SUMMARY | 2018-11-15 11:39 | XMS REPORT | Continuity of Care Document ---
:1965 External Reference #:[id number] Author Name Dillan Aracely Care Team Providers Name Role Phone Bam Samayoa MD Primary Care Physician Unavailable Payers Date Identification Numbers Payment Provider Subscriber Effective: Policy Number: [id number] [employer] Lety Schwab 2015 Medicaid PayID: [id number] [address] [address] [place] [address] Expires: 2015 Policy Number: [employer] Medicaid Andalenga Schwab [id number] PayID: [id number] [address] [address] [place] [address] Effective: 2013 Policy Number: [id number] Stafryan Schwab Onset: 2013 PayID: [id number] [address] [place] [address] Advance Directives Description No Information Available Problems Date Description Provider Status Onset: 10/09/2013 Sprain of wrist Erica Parry M.D. Active Note: right wrist Onset: 12/12/2017 Knee pain Brett Wilson MD Active Onset: 07/14/2018 Disorder of joint of ankle and/or Francesco Cano MD Active foot Family History Date Family Member(s) Observation Comments Father 70 Mother 69 Children 5 Social History Type Date Description Comments Sex Unknown Marital Status Single Lives With Children Occupation Works at [employer] ETOH Use Denies alcohol use Recreational Drug Use Denies Drug Use Tobacco Use Start: Unknown Patient is a former Quit July 2018. End: Unknown smoker Recreational Drug Use Formerly used Marijuana sporadically Smoking Status Reviewed: 10/17/18 Patient is a former Quit July 2018. smoker Exercise Type/Frequency Does not exercise STD's 2010 [facility] Allergies, Adverse Reactions, Alerts Date Description Reaction Status Severity Comments 02/23/2013 NKDA Active 02/23/2013 Seasonal Active Medications Medication Date Status Form Strength Qnty SIG Indications Ordering Provider Loratadine 04/17/ Active Tablets 10mg 30tab 1 by mouth J30.9 Ross 2017 s every day RU Kapadia Calcium 600-D 04/17/ Active Tablets 600-400mg 180ta 1 by mouth N95.1 Zsofia 2017 -Unit bs twice a day SANJANA Wright Humidifier 09/06/ Active Misc 1.25Gal 1unit as needed in J01.90 Erica 2015 s bedroom Therese Parry Proair HFA 10/12/ Active Aerosol 108(90Bas 1unit 2 puffs every J45.30 2014 e) s 4-6 hours as Sarmiento, mcg/Act needed Ibuprofen 10/17/ Hx Tablets 800mg 60tab 1 tab by N94.6 Ross 2018 - s mouth three RU Kapadia 10/17/ times a day 2019 with food as needed Chantix 08/05/ Hx Tablets 0.5mg X 53tab take as F17.210 Karolina Starting Month 2018 - 11 & 1 mg s directed MD Kamar Stevens 10/17/ X 42 2019 Azithromycin 07/24/ Hx Tablets 250mg 6tabs take 2 J18.9 Karolina 2018 - tablets MD Rodney 10/16/ today; then 2019 one tablet daily Sulfamethoxazol 01/10/ Hx Tablets 800-160mg 28tab 1 tab twice a Zaneb e/Trimethoprim 2018 - s day by mouth RYAN Puga 01/26/ x 14 days 2018 Naproxen 12/12/ Hx Tablets 500mg 60tab 1 tablet with M25.561 Brett 2018 - s food by mouth F 10/16/ twice a day Steve, 2019 as needed Ibuprofen 04/17/ Hx Tablets 800mg 60tab 1 tab by N94.6 Zsofitritsian 2017 - s mouth three Kyle 10/16/ times a day INSURANCE CLAIMS ANALYST 2019 with food as needed Chantix 04/17/ Hx Tablets 0.5mg X QS use according F17.210 Zsofia Starting Month 2016 & 1 mg to package Kamar Wright 12/12/ X 42 insturction INSURANCE CLAIMS ANALYST 2018 Loratadine 12/11/ Hx Tablets 10mg 30tab take 1 tablet Erica 2015 s by mouth Sohan 05/22/ every day M.D. 2016 Sudanyl 09/06/ Hx Tablets 30mg 30tab 2 tab by J01.90 Erica 2015 - s mouth every 4 Sohan 12/12/ hours, but M.D. 2017 not close to bedtime Guaifenesin ER 09/06/ Hx Tablets 600mg 30tab 1 by mouth J01.90 Erica 2015 - ER 12HR s twice a day Sohan 10/16/ prn M.D. 2018 Metronidazole 05/31/ Hx Tablets 500mg 4tabs take 4 A59.01 Erica 2014 - tablets Sohan, 06/24/ together po M.D. 2014 x1 Diflucan 04/29/ Hx Tablets 150mg 2tabs 1 tab by Erica 2014 - mouth once no Sohan, 05/31/ and then M.D. 2014 repeat in 1 week Venlafaxine HCL 04/28/ Hx Caps ER 37.5mg 49cap 1 tab by Z00.00 Erica ER 2014 - 24HR s mouth every Sohan 04/28/ day 7 days M.D. 2014 Chantix 04/28/ Hx Tablets 1mg 60tab follow F17.210 Erica Continuing 2014 - s instructions Sohan, Fish Galvin 04/28/ on pac M.D. 2014 Venlafaxine HCL 04/28/ Hx Caps ER 37.5mg 7caps 1 tab by Z00.00 Erica ER 2014 - 24HR mouth every Sohan 05/31/ day x 7 M.D. 2014 Venlafaxine HCL 04/28/ Hx Caps ER 75mg 90cap 1 by mouth po Erica ER 2014 - 24HR s qd x 3 weeks Sohan 05/31/ M.D. 2014 Chantix 04/28/ Hx Tablets 1mg 60tab 1 by mouth F17.210 Erica 2014 - s twice a day Sohan 04/28/ M.D. 2014 Chantix 04/28/ Hx Tablets 0.5mg 49tab 1 tab po 2x F17.210 Erica 2014 per day for 7 Sohan 04/28/ ,then 2 M.D. 2014 tab po 2x per day for 21 days Chantix 04/28/ Hx Tablets 53tab as directed Erica Starting 2014 Kamar Parry 05/12/ M.DPhilip 2014 Ibuprofen 03/17/ Hx Tablets 600mg 90tab three times a 840.9 Erica 2014 day as needed Sohan M.DPhilip 2014 Ibuprofen 03/17/ Hx Tablets 600mg 90tab three times a 840.9 Kathrine 2014 day as needed Antoine M.DPhilip 2016 No Active 09/28/ Hx Unknown Medications 2014 - 2014 Tamiflu 09/28/ Hx Capsules 75mg 10cap 1 by mouth 488.11 Erica 2014 twice a day Sohan 04/28/ M.DPhilip 2014 Wrist Splint 10/08/ Hx Misc 1unit rt splint 842.09 Kathrine 2013 neutral Antoine 09/28/ medium dx M.DPhilip 2015 code 8420.09 Naproxen 10/08/ Hx Tablets 500mg 60tab 1 po bid prn 842.09 Erica 2013 Sohan 09/28/ M.D. 2014 Ibuprofen 06/23/ Hx Tablets 600mg 45tab three times a 840.9 Erica 2012 day as needed Sohan M.DPhilip 2014 No Active 02/23/ Hx Unknown Medications 2012 - 2012 Proair HFA 02/23/ Hx Aerosol 108(90Bas 1unit 2 puffs every 493.10 Kathrine 2012 - ) s 4-6 hrs as Antoine 09/28/ mcg/Act needed M.D. 2014 Ibuprofen 02/23/ Hx Tablets 400mg 90tab 1 by mouth q 625.3 Kathrine 2012 8hr prn Antoine 10/08/ M.DPhilip 2013 Immunizations Description No Information Available Vital Signs Date Vital Result Comment 10/17/2018 1:17pm Height 69 inches 5'9" Weight 195.75 lb Heart Rate 114 /min BP Systolic 111 mmHg BP Diastolic 76 mmHg Body Temperature 97.4 F O2 % BldC Oximetry 95 % BMI (Body Mass Index) 28.9 kg/m2 08/11/2018 2:18pm Height 69 inches 5'9" Weight 193.00 lb Heart Rate 82 /min Respiratory Rate 15 /min Body Temperature 97.0 F Pain Level 8 BMI (Body Mass Index) 28.5 kg/m2 08/05/2018 4:12pm Height 69 inches 5'9" Weight 193.00 lb Heart Rate 90 /min BP Systolic 112 mmHg BP Diastolic 60 mmHg Body Temperature 99.2 F O2 % BldC Oximetry 97 % BMI (Body Mass Index) 28.5 kg/m2 07/24/2018 12:38pm Height 69 inches 5'9" Weight 193.00 lb Heart Rate 110 /min BP Systolic Sitting 105 mmHg BP Diastolic Sitting 69 mmHg Body Temperature 98.4 F O2 % BldC Oximetry 95 % BMI (Body Mass Index) 28.5 kg/m2 07/14/2018 9:51am Height 69 inches 5'9" Weight 189.00 lb Heart Rate 96 /min Respiratory Rate 16 /min Body Temperature 96.3 F Pain Level 9 BMI (Body Mass Index) 27.9 kg/m2 01/31/2018 11:08am Height 69 inches 5'9" Weight 198.00 lb Heart Rate 84 /min BP Systolic Sitting 104 mmHg BP Diastolic Sitting 70 mmHg Respiratory Rate 16 /min Pain Level 6 BMI (Body Mass Index) 29.2 kg/m2 01/21/2018 2:52pm Height 69 inches 5'9" Weight 198.00 lb BP Systolic Sitting 128 mmHg BP Diastolic Sitting 70 mmHg Respiratory Rate 16 /min Body Temperature 97.8 F Pain Level 9 BMI (Body Mass Index) 29.2 kg/m2 01/10/2018 8:55am Height 69 inches 5'9" Weight 198.00 lb BP Systolic 124 mmHg BP Diastolic 81 mmHg Respiratory Rate 16 /min Pain Level 10 BMI (Body Mass Index) 29.2 kg/m2 12/24/2017 3:01pm Weight 198.00 lb BP Systolic Sitting 128 mmHg BP Diastolic Sitting 70 mmHg Respiratory Rate 16 /min Body Temperature 97.1 F Pain Level 6 12/12/2017 10:46am Height 69 inches 5'9" Weight 189.00 lb Heart Rate 98 /min BP Systolic Sitting 118 mmHg BP Diastolic Sitting 68 mmHg Pain Level 9 O2 % BldC Oximetry 97 % BMI (Body Mass Index) 27.9 kg/m2 05/22/2017 10:04am Height 69 inches 5'9" Weight 184.00 lb Heart Rate 76 /min BP Systolic 120 mmHg BP Diastolic 74 mmHg Body Temperature 96.6 F O2 % BldC Oximetry 99 % BMI (Body Mass Index) 27.2 kg/m2 04/17/2017 2:31pm Height 69 inches 5'9" Weight 182.25 lb Heart Rate 76 /min BP Systolic 118 mmHg BP Diastolic 68 mmHg Body Temperature 98.4 F O2 % BldC Oximetry 98 % BMI (Body Mass Index) 26.9 kg/m2 09/06/2015 11:11am Heart Rate 83 /min BP Systolic Sitting 111 mmHg BP Diastolic Sitting 70 mmHg Body Temperature 97.7 F O2 % BldC Oximetry 99 % 05/31/2015 11:10am Height 69.5 inches 5'9.50" Weight 188.00 lb Heart Rate 89 /min BP Systolic 122 mmHg BP Diastolic 70 mmHg BMI (Body Mass Index) 27.4 kg/m2 04/28/2015 12:57pm Height 69.5 inches 5'9.50" Weight 185.50 lb Heart Rate 93 /min BP Systolic Sitting 126 mmHg BP Diastolic Sitting 74 mmHg O2 % BldC Oximetry 99 % BMI (Body Mass Index) 27.0 kg/m2 09/28/2014 12:53pm Height 69 inches 5'9" Weight 178.50 lb Heart Rate 116 /min BP Systolic Sitting 120 mmHg BP Diastolic Sitting 72 mmHg Body Temperature 100.0 F O2 % BldC Oximetry 96 % BMI (Body Mass Index) 26.4 kg/m2 11/17/2013 1:52pm Height 69 inches 5'9" Weight 170.75 lb Heart Rate 105 /min BP Systolic Sitting 124 mmHg BP Diastolic Sitting 80 mmHg O2 % BldC Oximetry 98 % BMI (Body Mass Index) 25.2 kg/m2 10/22/2013 4:29pm Height 69 inches 5'9" Weight 170.00 lb Heart Rate 80 /min BP Systolic Sitting 120 mmHg BP Diastolic Sitting 72 mmHg Body Temperature 98.7 F BMI (Body Mass Index) 25.1 kg/m2 10/08/2013 4:07pm Weight 170.25 lb Heart Rate 99 /min BP Systolic Sitting 135 mmHg BP Diastolic Sitting 77 mmHg Body Temperature 97.6 F Pain Level 9 06/23/2013 2:10pm Weight 169.00 lb Heart Rate 80 /min BP Systolic Sitting 140 mmHg BP Diastolic Sitting 90 mmHg 02/23/2013 1:48pm Height 69.5 inches 5'9.50" Weight 170.50 lb Heart Rate 93 /min BP Systolic Sitting 112 mmHg BP Diastolic Sitting 77 mmHg BMI (Body Mass Index) 24.8 kg/m2 Results Test Date Facility Test Result H/L Range Note Laboratory test 09/20/2018 [facility] Rapid SEE RESULT [address] [place] [address] Antigen [phone] Rapid Influenza 09/20/2018 [facility] Influenza A NEGATIVE Negative 2 A & B Molecular [address] Molecular [place], [place] [address] [phone] Influenza B Molecular NEGATIVE Negative CBC Auto 09/20/2018 [facility] White Blood 10.9 10^3/uL High 3.5-10.[address] [place] [address] [phone] Red Blood Count 4.70 10^6/uL N 4.00-5.40 Hemoglobin 14.9 g/dL N 12.0-16.0 Hematocrit 44 % N 35-47 Mean Corpuscular Volume 93 fL N 80-97 Mean Corpuscular Hemoglobin 32 pg High 27-31 Mean Corpuscular HGB Conc 34 g/dL N 31-36 Red Cell Distribution Width 13 % N 10.5-15 Platelet Count 294 10^3/uL N 150-450 Mean Platelet Volume 7.6 fL N 7.4-10.4 Abs Neutrophils 6.5 10^3/uL N 1.5-7.7 Abs Lymphocytes 2.2 10^3/uL N 1.0-4.8 Abs Monocytes 1.4 10^3/uL High 0-0.8 Abs Eosinophils 0.8 10^3/uL High 0-0.6 Abs Basophils 0.1 10^3/uL N 0-0.2 Abs Nucleated RBC 0 10^3/uL Granulocyte % 59.8 % Lymphocyte % 19.9 % Monocyte % 12.6 % Eosinophil % 6.9 % Basophil % 0.8 % Nucleated Red Blood Cells % 0.1 Comp Metabolic Panel 09/20/2018 [facility] Sodium 135 mmol/L N 135-[address] [place] [address] [phone] Potassium 3.9 mmol/L N 3.5-5.0 Chloride 106 mmol/L N 101-111 Co2 Carbon Dioxide 23 mmol/L N 22-32 Anion Gap 6 mmol/L N 2-11 Glucose 111 mg/dL High 70-100 Blood Urea Nitrogen 15 mg/dL N 6-24 Creatinine 0.91 mg/dL N 0.51-0.95 BUN/Creatinine Ratio 16.5 N 8-20 Calcium 9.3 mg/dL N 8.6-10.3 Total Protein 7.6 g/dL N 6.4-8.9 Albumin 4.6 g/dL N 3.2-5.2 Globulin 3.0 g/dL N 2-4 Albumin/Globulin Ratio 1.5 N 1-3 Total Bilirubin 0.50 mg/dL N 0.2-1.0 Alkaline Phosphatase 124 U/L High 34-104 Alt 11 U/L N 7-52 Ast 22 U/L N 13-39 Egfr Non- 65.2 >60 Egfr 78.9 >60 3 Laboratory test 09/20/2018 [facility] Troponin-I 0.00 ng/mL < 0.04 [address] (TnI) [place] [address] [phone] Laboratory test 09/20/2018 [facility] Partial Thrombo 32.7 seconds N 26.0-36.[address] [place] [address] [phone] B-Type Natriuretic Peptide BNP 6 pg/mL <=100 Inr/Protime 09/20/2018 [facility] Inr 1.05 High 0.77-1.[address] [place], [place] [id number] [phone] Rapid Influenza 08/31/2018 [facility] Influenza A NEGATIVE Negative 5 A & B Molecular [address] [place] [address] [phone] Influenza B Molecular NEGATIVE Negative Laboratory test 08/31/2018 [facility] Rapid Influenza SEE RESULT [address] [place] [address] [phone] CBC Auto Diff 06/01/2018 [facility] White Blood 7.0 10^3/uL N 3.5-[address] Count .8 [place] [address] [phone] Red Blood Count 4.89 10^6/uL N 4.00-5.40 Hemoglobin 15.5 g/dL N 12.0-16.0 Hematocrit 46 % N 35-47 Mean Corpuscular Volume 93 fL N 80-97 Mean Corpuscular Hemoglobin 32 pg High 27-31 Mean Corpuscular HGB Conc 34 g/dL N 31-36 Red Cell Distribution Width 13 % N 10.5-15 Platelet Count 305 10^3/uL N 150-450 Mean Platelet Volume 7.8 fL N 7.4-10.4 Abs Neutrophils 4.2 10^3/uL N 1.5-7.7 Abs Lymphocytes 1.0 10^3/uL N 1.0-4.8 Abs Monocytes 1.1 10^3/uL High 0-0.8 Abs Eosinophils 0.7 10^3/uL High 0-0.6 Abs Basophils 0 10^3/uL N 0-0.2 Abs Nucleated RBC 0 10^3/uL Granulocyte % 60.8 % N 38-83 Lymphocyte % 13.9 % Low 25-47 Monocyte % 15.3 % High 0-7 Eosinophil % 9.5 % High 0-6 Basophil % 0.5 % N 0-2 Nucleated Red Blood Cells % 0.1 Comp Metabolic Panel 06/01/2018 [facility] Sodium 141 mmol/L N 135-[address] [place] [address] [phone] Potassium 4.3 mmol/L N 3.5-5.0 Chloride 106 mmol/L N 101-111 Co2 Carbon Dioxide 28 mmol/L N 22-32 Anion Gap 7 mmol/L N 2-11 Glucose 105 mg/dL High 70-100 Blood Urea Nitrogen 8 mg/dL N 6-24 Creatinine 0.81 mg/dL N 0.51-0.95 BUN/Creatinine Ratio 9.9 N 8-20 Calcium 9.3 mg/dL N 8.6-10.3 Total Protein 7.1 g/dL N 6.4-8.9 Albumin 4.5 g/dL N 3.2-5.2 Globulin 2.6 g/dL N 2-4 Albumin/Globulin Ratio 1.7 N 1-3 Total Bilirubin 0.80 mg/dL N 0.2-1.0 Alkaline Phosphatase 121 U/L High 34-104 Alt 9 U/L N 7-52 Ast 23 U/L N 13-39 Egfr Non- 74.5 >60 Egfr 90.2 >60 7 Xray 12/06/[address] [place] Knee 3 Views <pending> [address] [place] [address] [phone] CBC Auto Diff 08/25/2017 [facility] White Blood 6.0 10^3/uL N 3.5-10.[address] [place] [address] [phone] Red Blood Count 4.70 10^6/uL N 4.0-5.4 Hemoglobin 15.0 g/dL N 12.0-16.0 Hematocrit 44 % N 35-47 Mean Corpuscular Volume 94 fL N 80-97 Mean Corpuscular Hemoglobin 32 pg High 27-31 Mean Corpuscular HGB Conc 34 g/dL N 31-36 Red Cell Distribution Width 13 % N 10.5-15 Platelet Count 321 10^3/uL N 150-450 Mean Platelet Volume 8 um3 N 7.4-10.4 Abs Neutrophils 3.1 10^3/uL N 1.5-7.7 Abs Lymphocytes 2.0 10^3/uL N 1.0-4.8 Abs Monocytes 0.7 10^3/uL N 0-0.8 Abs Eosinophils 0.1 10^3/uL N 0-0.6 Abs Basophils 0 10^3/uL N 0-0.2 Abs Nucleated RBC 0 10^3/uL Granulocyte % 51.5 % N 38-83 Lymphocyte % 32.9 % N 25-47 Monocyte % 12.4 % High 1-9 Eosinophil % 2.4 % N 0-6 Basophil % 0.8 % N 0-2 Nucleated Red Blood Cells % 0.1 Comp Metabolic Panel 08/25/2017 [facility] Sodium 137 mmol/L N 133-[address] [place] [address] [phone] Potassium 3.8 mmol/L N 3.5-5.0 Chloride 105 mmol/L N 101-111 Co2 Carbon Dioxide 26 mmol/L N 22-32 Anion Gap 6 mmol/L N 2-11 Glucose 132 mg/dL High 70-100 Blood Urea Nitrogen 11 mg/dL N 6-24 Creatinine 1.00 mg/dL High 0.51-0.95 BUN/Creatinine Ratio 11.0 N 8-20 Calcium 8.8 mg/dL N 8.6-10.3 Total Protein 6.7 g/dL N 6.4-8.9 Albumin 4.0 g/dL N 3.2-5.2 Globulin 2.7 g/dL N 2-4 Albumin/Globulin Ratio 1.5 N 1-3 Total Bilirubin 0.50 mg/dL N 0.2-1.0 Alkaline Phosphatase 94 U/L N 34-104 Alt 7 U/L N 7-52 Ast 19 U/L N 13-39 Egfr Non- 58.7 >60 Egfr 75.5 >60 8 Laboratory test 08/25/2017 [facility] Uric Acid 4.3 mg/dL N 2.3-6.[address] [place] [address] [phone] C Reactive Protein 3.90 mg/L N < 5.00 9 Laboratory 05/31/2015 [facility] HIV 1/2 AB Nonreactive N Nonreactive 10 test finding [address] [place] [address] [phone] GC/Chlamydia 04/28/2015 [facility] Chlamydia Negative N Negative Amplified Rna [address] [place] [address] Rna [phone] Neisseria gonorrhoeae (GC) Rna Negative N Negative 11 Laboratory test 04/28/2015 [facility] Cytology SEE RESULT [address] [place] [address] [phone] Laboratory test 04/28/2015 [facility] Gardnerella/Yea SEE RESULT [address]: [place] [address] [phone] Trichomonas Vaginalis Rna Positive Abnormal Negative 14 HPV Rna Ww/Reflex Genotype Negative N Negative 15 Laboratory test finding 09/28/2014 [facility] Rapid Strep A neg 1 SEE RESULT BELOW Name: LETY SCHWAB : [address]: Rashad Draper MD Acct: [id number] Unit: [id number] AGE: 53 Location: ED Re09/20/18 SEX: F Status: REG ER SPEC: [id number] GUIDO: 09/20/18-[address]: Rashad Draper MD REQ: [id number] RECD: 09/20/18 STATUS: ROS VIDES DR: Bam Samayoa MD _ SOURCE: [facility]: ORDERED: Flu A B Request Procedure Result Reported Site Rapid Influenza A B Request Final 09/20/18- 1556 ML Specimen received for Influenza A/B Molecular testing * ML - Main Lab . END OF REPORT DEPARTMENT OF PATHOLOGY, [address] [place] [address] Delano Mcdaniel M.D. Director [facility] # [id number] 2 Loom Technician: [id number] 3 Because ethnic data is not always readily [...] 15-29 5 Kidney failure <15 (or dialysis) 4 Troponin-I testing on Plasma Separator Tubes (PST) has a known false positive rate of 0.20-0.40%. All positive troponins reflex immediate secondary confirmatory testing. 5 Loom Technician: [id number] 6 SEE RESULT BELOW Name: JALENCORDELLNGA Olson : [address]: Tony Chavez MD Acct: [id number] Unit: [id number] AGE: 53 Location: ED Re08/30/18 SEX: F Status: REG ER SPEC: [id number] GUIDO: 08/31/[address] [facility] DR: Cyrus RUVALCABA REQ: [id number] RECD: 08/31/18 STATUS: ROS VIDES DR: [facility] Bam Samayoa MD _ SOURCE: [facility]: ORDERED: Flu A B Request Procedure Result Reported Site Rapid Influenza A B Request Final 08/31/18- 202 ML Specimen received for Influenza A/B Molecular testing * ML - Main Lab . END OF REPORT DEPARTMENT OF PATHOLOGY, [address] [place] [address] Delano Mcdaniel M.D. Director [facility] # [id number] 7 Because ethnic data is not always readily [...] 15-29 5 Kidney failure <15 (or dialysis) 8 Because ethnic data is not always readily [...] 15-29 5 Kidney failure <15 (or dialysis) 9 Acute inflammation: >10.00 10 It is recognized that currently available assays [...] 95% confidence interval of 99.78 to 99.96%. 11 Female urine specimens have been self-validated by [facility] and have been granted conditional assay approval by [facility]. 12 SEE RESULT BELOW Name: SCHWABERIKAKADEN Olson : [address]: Erica Parry MD Acct: [id number] Unit: [id number] AGE: 50 Location: [facility] Re04/28/15 SEX: F Status: REG REF SPEC: [id number] GUIDO: 04/28/15-[address] [facility] DR: Erica Parry MD REQ: [id number] RECD: 04/28/152391 STATUS: SOUT _ ORDERED: IMAGE ANALYSIS, HPV/Thin [...] Signed (signature on file) Robe Schumacher 04/29/15 6002 This Pap test was evaluated with the assistance of the [employer] Test Imaging System. Due to cytologic findings at the supervisor phosphoric acid microscope, comprehensive manual rescreening by a Manager Oracle may be required. The Pap Smear is [...] performed at Main Lab DEPARTMENT OF PATHOLOGY, [address] [place] [address] Delano Mcdaniel M.D. Director [facility] # [id number] 13 SEE RESULT BELOW Name: JALENLETY : [address]: Erica Parry MD Acct: [id number] Unit: [id number] AGE: 50 Location: [facility] Re04/28/15 SEX: F Status: REG REF SPEC: [id number] GUIDO: 04/28/[address] [facility] DR: Erica Parry MD REQ: [id number] RECD: 04/28/15 STATUS: COMP _ SOURCE: VAGINAL SPDESC: ORDERED: IdaliaYeast DNA Procedure Result Verified Site Gardnerella/Yeast: Vaginal [...] or failure. * ML - MAIN LAB ([facility]) . END OF REPORT * ML=Testing performed at Main Lab DEPARTMENT OF PATHOLOGY, [address] [place] [address] Delano Mcdaniel M.D. Director [facility] # [id number] GC/Chlamydia Source?: Thin Prep HPV Source?: Thin Prep Trichomonas Source: Thin Prep 15 The high-risk HPV types detected by the assay include: 16, 18, 31, 33, 35, 39, 45, 51, 52, 56, 58, 59, 66, and 68. 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 left ankle and foot Office Visit 01/31/2018 Abdias Cano, S90.512A Abrasion, left 11:00a Services Of ankle, initial C.M.A. encounter Office Visit 01/21/2018 Abdias Cano, S90.512A Abrasion, left 2:30p Services Of ankle, initial C.M.A. encounter S93.402A Sprain of unspecified ligament of left ankle, init encntr W19.xxxA Unspecified fall, initial encounter Office Visit 01/10/2018 8:30a Orthopedic Meera Puga, S80.02xA Contusion of Services Of left knee, C.M.A. initial encounter S93.402A Sprain of unspecified ligament of left ankle, init encntr S90.512A Abrasion, left ankle, initial encounter W19.xxxA Unspecified fall, initial encounter Office Visit 12/24/2017 Orthopedic Brett Mccartney M25.561 Pain in right knee 2:15p Services Of MD Steve C.M.A. Office Visit 12/12/2017 Orthopedic Brett Mccartney M25.561 Pain in right knee 1:30p Services Of MD Steve C.M.A. Office Visit 12/12/2017 [facility] Internal Kathrine M25.561 Pain in right knee 10:30a Kourtney Schultz M.D. [place] Office Visit 05/22/2017 [facility] Internal Leny Wright, F17.210 Nicotine 10:20a Medicine - [place] INSURANCE CLAIMS ANALYST dependence, Rd cigarettes, uncomplicated M25.571 Pain in right ankle and joints of right foot Office Visit 04/17/2017 2:40p [facility] Internal Leny Wright, Z00.00 Encntr for Medicine - [place] INSURANCE CLAIMS ANALYST general adult Rd medical exam w/o abnormal findings F17.210 Nicotine dependence, cigarettes, uncomplicated R23.9 Unspecified skin changes J30.9 Allergic rhinitis, unspecified N94.6 Dysmenorrhea, unspecified Z13.220 Encounter for screening for lipoid disorders N95.1 Menopausal and female climacteric states Z12.11 Encounter for screening for malignant neoplasm of colon Z12.31 Encntr screen mammogram for malignant neoplasm of breast Office Visit 09/06/2015 11:00a [facility] Internal Erica Parry, J01.90 Acute sinusitis, Medicine - M.D. unspecified [place] R23.9 Unspecified skin changes Office Visit 05/31/2015 11:00a [facility] Internal Erica Parry, N95.1 Menopausal and Medicine - M.D. female climacteric [place] states A59.01 Trichomonal vulvovaginitis N64.59 Other signs and symptoms in breast F17.201 Nicotine dependence, unspecified, in remission Office Visit 04/28/2015 1:00p [facility] Internal Erica Parry, Z00.00 Encntr for Medicine - M.D. general adult [place] medical exam w/o abnormal findings N95.1 Menopausal and female climacteric states Z12.31 Encntr screen mammogram for malignant neoplasm of breast Z12.4 Encounter for screening for malignant neoplasm of cervix R53.83 Other fatigue Z82.49 Family hx of ischem heart dis and oth dis of the circ sys F17.210 Nicotine dependence, cigarettes, uncomplicated Office Visit 09/28/2014 1:00p [facility] Internal Erica Parry, 488.11 Influenza Due To Medicine - M.D. Identified 2009 [place] H1N1 Virus W/ Pneumonia 784.1 Throat Pain 487.1 Influenza W/ Other Respiratory Manifestations Office Visit 11/17/2013 2:00p [facility] Internal Erica Parry, 923.3 Contusion Finger Medicine - M.D. [place] 842.13 Sprains & Strains Hand Interphalangeal (Joint) Office Visit 10/22/2013 4:20p [facility] Internal Erica Parry, 842.09 Sprains & Medicine - M.D. Strains Wrist & [place] Hand Other 842.09 Sprains & Strains Wrist & Hand Other Office Visit 10/08/2013 3:40p [facility] Internal Erica Parry, 842.09 Sprains & Medicine - M.D. Strains Wrist & [place] Hand Other 923.3 Contusion Finger Office Visit 06/23/2013 1:40p [facility] Internal Erica Parry, 955.2 Injury Nerve Medicine - Jayme.Amanda Ulnar [place] 840.9 Sprains & Strains Shoulder & Upper Arm Unspec V76.19 Screening Breast Exam Malignant Neoplasms Other Office Visit 02/23/2013 1:50p [facility] Internal Kathrine 493.10 Asthma Intrinsic Medicine Chau Schultz M.D. Unspecified [place] 305.1 Tobacco Use Disorder 625.3 Dysmenorrhea Plan of Treatment 10/17/2018 - Ross Kapadia, NPZ01.818 Encounter for other preprocedural examinationNew Orders:EKG, Ordered: 10/17/18M25.872 Other specified joint disorders, left ankle and footJ45.20 Mild intermittent asthma, uncomplicated
[2018-11-15] MEDS ORDERED: guaiFENesin/CODIEN 100MG-10MG* 5 ML UDC PO ONE (12:54)
[2018-11-15] MEDS ORDERED: predniSONE TAB* 20 MG PO ONE (12:55)
--- NOTE | 2018-11-15 13:08 | ED ---
Shortness of Breath - HPI Summary HPI Summary: Patient is a 53-year-old otherwise healthy female who presents to the ED with worsening cough over one month. She was seen at urgent care and was given Tessalon. This was without improvement. She states despite the Tessalon, she continues to worsen. She endorses mild phlegm which is green and yellowish in color and intermittent. She is endorsing shortness of breath with cough. Symptoms are worse with lying flat and better with leaning forward. No history of CHF, CAD or other cardiac history. She states during cough she has chest pain, but otherwise she denies any chest pain. She denies any pain to the back. She denies the inability to catch her breath with coughing sessions. She is not take anything [id number] for relief. Denies any fevers, sweats , chills. She states other than the cough, she has felt otherwise well. She denies any body aches, nausea, vomiting. Denies any flulike symptoms. - History of Current Complaint Chief Complaint: EDUpperRespComplaint Time Seen by Provider: 11/15/18 11:16 Hx Obtained From: Patient Onset/Duration: Sudden Onset Timing: Constant Current Severity: Moderate Dyspnea At: Rest Aggrevating Factors: Deep Breaths Associated Signs & Symptoms: Cough (Productive), Chest Pain w/Cough - Risk Factors Pulmonary Embolism: Negative Cardiac: Negative Pseudomonas: Negative Tuberculosis: Negative - Allergy/Home Medications Allergies/Adverse Reactions: Allergies Allergy/AdvReac Type Severity Reaction Status Date / Time latex Allergy Itching Verified 11/15/18 11:31 PMH/Surg Hx/FS Hx/Imm Hx Previously Healthy: Yes Endocrine/Hematology History: Denies: Hx Diabetes Cardiovascular History: Denies: Hx Hypertension, Hx Pacemaker/ICD, Other Cardiovascular Problems/ Disorders Respiratory History: Reports: Hx Asthma, Other Respiratory Problems/Disorders - 06/2018-PNEUMONIA GI History: Reports: Hx Gastroesophageal Reflux Disease - TRIES TO MANAGE WITH DIET- DRINKS MILK WHICH HELPS PER PATIENT Denies: Other GI Disorders History: Denies: Hx Renal Disease, Other Problems/Disorders Musculoskeletal History: 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 Sensory History: Reports: Hx Contacts or Glasses - GLASSES Denies: Hx Legally Blind, Hx Deafness, Hx Hearing Aid Opthamlomology History: Reports: Hx Contacts or Glasses - GLASSES Denies: Hx Legally Blind Neurological History: Denies: Hx Dementia, Other Neuro Impairments/Disorders Psychiatric History: Denies: Hx Panic Disorder - Cancer History Hx Chemotherapy: No Hx Radiation Therapy: No - Surgical History Surgery Procedure, Year, and Place: tonsils; tubal ligation Hx Anesthesia Reactions: No - Immunization History Hx Pertussis Vaccination: No Immunizations Up to Date: Yes Infectious Disease History: No Infectious Disease History: Denies: Traveled Outside the [place] in Last 30 Days - Family History Known Family History: Positive: Other - asthma - Social History Occupation: Employed Full-time Lives: With Family Alcohol Use: Occasionally Hx Substance Use: Yes Substance Use Type: Reports: Marijuana Substance Use Comment - Amount & Last Used: SMOKED DAILY Hx Tobacco Use: No Smoking Status (MU): Former Smoker Amount Used/How Often: 1 PACK PER WEEK OFF AND ON 10 YEARS Have You Smoked in the Last Year: Yes Review of Systems Constitutional: Negative Negative: Fever, Chills, Fatigue, Skin Diaphoresis Negative: Palpitations, Chest Pain Positive: Shortness Of Breath, Cough Negative: Abdominal Pain, Vomiting, Diarrhea, Nausea Genitourinary: Negative Positive: no symptoms reported, see HPI Negative: Arthralgia, Myalgia Neurological: Negative All Other Systems Reviewed And Are Negative: Yes Physical Exam Triage Information Reviewed: Yes Vital Signs On Initial Exam: Initial Vitals Temp Pulse Resp BP Pulse Ox 97.5 F 89 18 146/98 98 11/15/18 11:27 11/15/18 11:27 11/15/18 11:27 11/15/18 11:27 11/15/18 11:27 Vital Signs Reviewed: Yes Appearance: Positive: Well-Appearing, Well-Nourished Skin: Positive: Warm, Skin Color Reflects Adequate Perfusion Head/Face: Positive: Normal Head/Face Inspection Eyes: Positive: EOMI, Conjunctiva Clear Neck: Positive: Supple, No Lymphadenopathy Respiratory/Lung Sounds: Positive: Clear to Auscultation, Breath Sounds Present. Negative: Decreased Breath Sounds, Rales, Rhonchi, Subcutaneous Emphysema, Wheezes, Unable to speak in full sentences Cardiovascular: Positive: RRR, Pulses are Symmetrical in both Upper and Lower Extremities. Negative: Leg Edema Left, Leg Edema Right Musculoskeletal: Positive: Normal, Strength/ROM Intact Neurological: Positive: Sensory/Motor Intact, Alert, Oriented to Person Place, Time, Speech Normal Psychiatric: Positive: Normal, Affect/Mood Appropriate AVPU Assessment: Alert Diagnostics - Vital Signs Vital Signs Temp Pulse Resp BP Pulse Ox 11/15/18 12:02 89 17 130/72 98 11/15/18 12:01 99 23 97 11/15/18 11:59 92 96 11/15/18 11:27 97.5 F 89 18 146/98 98 - Laboratory Lab Statement: Any lab studies that have been ordered have been reviewed, and results considered in the medical decision making process. Course/Dx - Course Course Of Treatment: During this was a treatment, the patient is evaluated for cough. On physical examination, there is a cough without production noted., Patient appears ill, no tearing from the eyes secondary to cough. She is given Robitussin with codeine in the ED. Chest x-ray obtained. She is afebrile and states she has been feeling otherwise well. Labs are not obtained for these reasons. On physical examination, her lungs are wheezing bilaterally, with no rhonchorous sounds. Chest x-ray is negative. She is given prednisone once daily 5 days as well as Robitussin with codeine up to every 6 hours as needed. She will follow-up with her associate quality engineer. She is also given an albuterol inhaler while in the ED. - Diagnoses Differential Diagnosis/HQI/PQRI: Positive: Asthma, Bronchitis Provider Diagnoses: Asthma, Cough Discharge - Sign-Out/Discharge Documenting (check all that apply): Patient Departure Patient Received Moderate/Deep Sedation with Procedure: No - Discharge Plan Condition: Stable Disposition: HOME Prescriptions: guaiFENesin/CODIEN 100MG-10MG* [Robitussin AC 100Mg-10Mg*] 10 ml PO BEDTIME # 120 udc MDD 40 predniSONE TAB* [Deltasone TAB*] 50 mg PO DAILY #5 tab Patient Education Materials: Acute Cough (ED) Referrals: Casey Mcgee MD [Primary Care Provider] - Additional Instructions: Please follow up with PCP Robitussin with codeine, 2 teaspoons up to every 6 hours as needed for cough Use cough drops otherwise for relief Prednisone once daily 5 days Albuterol inhaler, once every 4 hours as needed for shortness of breath - Billing Disposition and Condition Condition: STABLE Disposition: Home
[2018-11-15] MEDS ORDERED: Albuterol HFA INHALER* 8 gm MDI INH ONE (14:36)
[2018-11-15 15:30] VITALS: BP 0/0
== END 2018-11-15 15:25 | disposition home or self-care (01) ==
LOC: ED 10:55
DX: R05 Cough (principal); J45.909 Unspecified asthma, uncomplicated; Z87.891 Personal history of nicotine dependence
CPT/HCPCS: 71046; 93005; 99282; A9270-GY; J7512

== ENCOUNTER → 2019-01-29 18:18 | Emergency (ER) | payer OTHER ==
[~2019-01-29 18:18] MED LIST: Albuterol/Ipratropium NEB.SOL* Albuterol 2.5 MG/Ipratropium 0.5 MG 3 ML ONE; Magnesium Sulfate 2 GM IV* 2 GM/50 ML BAG IVPB ONE; NS 0.9% 1000 ML** 1,000 ML IV ONE; methylPREDNISolone 125 MG* 2 ML VIAL IV ONE
--- NOTE | 2019-01-29 19:30 | ED ---
Asthma - HPI Summary HPI Summary: The patient is a 53 y/o F presenting to [facility] with a chief complaint of SOB persisting over the last few days. She reports that she recently had a URI that may have triggered her asthma exacerbation. She attempted to treat the SOB with Albuterol to no improvement of symptoms. She additionally c/o nonproductive cough and speaking in partial sentences that is secondary to SOB. She denies CP and fever. She is not currently in pain. Hx of asthma, PNA, GERD. FHx of asthma. Former smoker, occasional EtOH, marijuana use. - History of Current Complaint Chief Complaint: EDAsthma Stated Complaint: "SHORTNESS OF BREATH PER PT" Time Seen by Provider: 01/29/19 19:15 Hx Obtained From: Patient Hx Last Menstrual Period: 2 wks ago Onset/Duration: Sudden Onset, Lasting Days, Still Present Timing: Days Initial Severity: Moderate Current Severity: Moderate Pain Intensity: 0 Pain Scale Used: 0-10 Numeric Location/Character: Cough (Nonproductive) Aggravating Symptoms: Other: - recent URI Alleviating Symptoms: Nothing - Albuterol to no relief Associated Signs and Symptoms: Positive: URI, Shortness of Breath, Other - POSITIVE: speaking in partial sentences secondary to SOB; NEGATIVE: fever, CP - Allergy/Home Medications Allergies/Adverse Reactions: Allergies Allergy/AdvReac Type Severity Reaction Status Date / Time latex Allergy Itching Verified 01/29/19 18:23 PMH/Surg Hx/FS Hx/Imm Hx Endocrine/Hematology History: Denies: Hx Diabetes Cardiovascular History: Denies: Hx Hypercholesterolemia, Hx Hypertension, Hx Pacemaker/ICD, Other Cardiovascular Problems/Disorders Respiratory History: Reports: Hx Asthma, Other Respiratory Problems/Disorders - 06/2018-PNEUMONIA GI History: Reports: Hx Gastroesophageal Reflux Disease - TRIES TO MANAGE WITH DIET- DRINKS MILK WHICH HELPS PER PATIENT Denies: Other GI Disorders History: Denies: Hx Renal Disease, Other Problems/Disorders Musculoskeletal History: 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 Sensory History: Reports: Hx Contacts or Glasses - GLASSES Denies: Hx Legally Blind, Hx Deafness, Hx Hearing Aid Opthamlomology History: Reports: Hx Contacts or Glasses - GLASSES Denies: Hx Legally Blind Neurological History: Denies: Hx Dementia, Other Neuro Impairments/Disorders Psychiatric History: Denies: Hx Panic Disorder - Cancer History Hx Chemotherapy: No Hx Radiation Therapy: No - Surgical History Surgery Procedure, Year, and Place: tonsils; tubal ligation Hx Anesthesia Reactions: No - Immunization History Date of Tetanus Vaccine: utd Date of Influenza Vaccine: fall 2017 Infectious Disease History: No Infectious Disease History: Denies: Traveled Outside the [place] in Last 30 Days - Family History Known Family History: Positive: Other - asthma - Social History Alcohol Use: Occasionally Hx Substance Use: Yes Substance Use Type: Reports: Marijuana Substance Use Comment - Amount & Last Used: SMOKED DAILY Hx Tobacco Use: No Smoking Status (MU): Former Smoker Amount Used/How Often: 1 PACK PER WEEK OFF AND ON 10 YEARS Have You Smoked in the Last Year: Yes Review of Systems Negative: Fever Negative: Chest Pain Positive: Shortness Of Breath, Cough - nonproductive, Other - speaking in partial sentences secondary to SOB All Other Systems Reviewed And Are Negative: Yes Physical Exam - Summary Physical Exam Summary: VITAL SIGNS: Reviewed. GENERAL: Patient is a well-developed and nourished female who is lying comfortable in the stretcher. Patient is in mild acute respiratory distress causing her to speak in partial sentences. HEAD AND FACE: No signs of trauma. No ecchymosis, hematomas or skull depressions. No sinus tenderness. EYES: PERRLA, EOMI x 2, No injected conjunctiva, no nystagmus. EARS: Hearing grossly intact. Ear canals and tympanic membranes are within normal limits. MOUTH: Oropharynx within normal limits. NECK: Supple, trachea is midline, no adenopathy, no JVD, no carotid bruit, no c- spine tenderness, neck with full ROM. CHEST: Symmetric, no tenderness at palpation. LUNGS: Decreased breath sounds bilaterally. Diffuse wheezing. No crackles. CVS: Regular rate and rhythm, S1 and S2 present, no murmurs or gallops appreciated. ABDOMEN: Soft, non-tender. No signs of distention. No rebound, no guarding, and no masses palpated. Bowel sounds are normal. EXTREMITIES: FROM in all major joints, no edema, no cyanosis or clubbing. NEURO: Alert and oriented x 3. No acute neurological deficits. Speech is normal and follows commands. SKIN: Dry and warm. Triage Information Reviewed: Yes Vital Signs On Initial Exam: Initial Vitals Temp Pulse Resp BP Pulse Ox 98.2 F 97 18 152/92 95 01/29/19 18:20 01/29/19 18:20 01/29/19 18:20 01/29/19 18:20 01/29/19 18:20 Vital Signs Reviewed: Yes Diagnostics - Vital Signs Vital Signs Temp Pulse Resp BP Pulse Ox 01/29/19 18:20 98.2 F 97 18 152/92 95 - Laboratory Result Diagrams: 01/29/19 20:20 01/29/19 20:20 Lab Statement: Any lab studies that have been ordered have been reviewed, and results considered in the medical decision making process. - Radiology CXR Radiology Interpretation Completed By: Radiologist Summary of Radiographic Findings: No acute pathology. ED physician has reviewed this report. - EKG 1938 Cardiac Rate: NL - 73 BPM EKG Rhythm: Sinus Rhythm EKG Comparison: No Significant Change - Similar to previous EKG take on 2018. Summary of EKG Findings: No ST elevations. Re-Evaluation - Re-Evaluation First Eval Re-Evaluation Time: 20:29 Comment: The patient's symptoms have improved. We discussed discharge home. Asthma Course/Dx - Course Assessment/Plan: The patient is a 53 y/o F presenting to [facility] with a chief complaint of SOB persisting over the last few days. She reports that she recently had a URI that may have triggered her asthma exacerbation. She attempted to treat the SOB with Albuterol to no improvement of symptoms. She additionally c/o nonproductive cough and speaking in partial sentences that is secondary to SOB. She denies CP and fever. She is not currently in pain. Hx of asthma, PNA, GERD. FHx of asthma. Former smoker, occasional EtOH, marijuana use. Blood work without any significant abnormality except for glucose of 103 and alkaline phosphatase of 116. Chest x-ray shows no acute pathology. In the ED course, the patient was given IV fluids, multiple DuoNeb, magnesium, and Solu -Medrol. After these medications, the patients symptoms have significantly improved. The patient still has some nasal congestion; therefore the patient will be given Ventolin, Flonase, and prednisone for home. Reexamination of the nose is clear to auscultation bilaterally. The patient is feeling better, and she is saturating 98% on room air. I discussed all the findings and test results with the patient. Patient was instructed to return to the emergency room immediately if any of the symptoms return or worsen. Plan of care was discussed with the patient and understands and agrees. All questions were answered at patient satisfaction. There were no further complaints or concerns. Lung exam before discharge: CTA B/L. Good air exchange. No wheezing or crackles heard. CVS: S1 and S2 present. No murmurs appreciated. Patient is alert and oriented x 3. Patient is hemodynamically stable. Patient will be discharged home with follow up wharfinger chief in the next 2-3 days. - Diagnoses Provider Diagnoses: Asthma exacerbation Discharge - Sign-Out/Discharge Documenting (check all that apply): Patient Departure - Patient will be discharged home. Patient Received Moderate/Deep Sedation with Procedure: No - Discharge Plan Condition: Stable Disposition: HOME Prescriptions: Albuterol HFA INHALER* [Ventolin HFA Inhaler*] 2 puff INH Q6H PRN #1 mdi MDD 4 PRN Reason: Sob/Wheezing Fluticasone NASAL SPRAY 50MCG* [Flonase NASAL SPRAY 50MCG*] 2 spray LEFT NARE DAILY #1 btl predniSONE TAB* [Deltasone TAB*] 50 mg PO DAILY #5 tab Patient Education Materials: Asthma (DC) Referrals: Casey Mcgee MD [Primary Care Provider] - 3 Days Additional Instructions: Please take medications as prescribed. Follow up with your primary care provider in 2-3 days. RETURN TO THE EMERGENCY DEPARTMENT FOR ANY NEW OR WORSENING SYMPTOMS. - Billing Disposition and Condition Condition: STABLE Disposition: Home - Attestation Statements Document Initiated by Sahil: Yes Documenting Scribe: Aarti Thomas Provider For Whom Sahil is Documenting (Include Credential): Dr. Casey Martinez MD Scribe Attestation: Aarti White scribed for Dr. Casey Martinez MD on 01/29/19 at 2116. Scribe Documentation Reviewed: Yes Provider Attestation: The documentation as recorded by the Aarti santos accurately reflects the service I personally performed and the decisions made by me, Dr. Casey Martinez MD Status of Scribabel Document: Ready
[2019-01-29] MEDS: Albuterol/Ipratropium NEB.SOL* Albuterol 2.5 MG/Ipratropium 0.5 MG 3 ML INH SCH ×3 (19:37→20:13)
[2019-01-29 20:31] LABS: ABS Basophils 0.1 10^3/ul (0-0.2); ABS Eosinophils 0.7 10^3/ul (0-0.6); ABS Monocytes 0.9 10^3/ul (0-0.8); ABS Neutrophils 3.4 10^3/ul (1.5-7.7); Eosinophil % 8.3 %; Hematocrit 40 % (35-47); Lymphocyte % 37.5 %; Mean Corpuscular HGB Conc 35 g/dL (31-36); Mean Corpuscular Hemoglobin 33 pg (27-31); Mean Corpuscular Volume 94 fL (80-97); Mean Platelet Volume 7.7 fL (7.4-10.4); Nucleated Red Blood Cells % 0.2; Platelet Count 302 10^3/uL (150-450); Red Blood Count 4.32 10^6 /uL (3.70-4.87); Red Cell Distribution Width 13 % (10-15)
[2019-01-29 20:50] LABS: Albumin/Globulin Ratio 1.5 (1-3); BUN/Creatinine Ratio 14.7 (8-20); C Reactive Protein 6.12 mg/L (<8.01); Calcium 8.9 mg/dL (8.6-10.3); Globulin 2.6 g/dL (2-4); Total Bilirubin 0.3 mg/dL (0.2-1.0); Total Protein 6.6 g/dL (6.4-8.9)
[2019-01-29 20:55] LABS: CKMB ng/mL 3.7 ng/mL (0.6-6.3)
[2019-01-29 21:14] LABS: Potassium 3.9 mmol/L (3.5-5.0)
[2019-01-29 21:25] VITALS: BP 126/77
== END | disposition home or self-care (01) ==
LOC: ED 18:18
DX: J45.901 Unspecified asthma with (acute) exacerbation (principal); J06.9 Acute upper respiratory infection, unspecified; Z87.891 Personal history of nicotine dependence
CPT/HCPCS: 36415; 71045; 80053; 82553; 83605; 83880; 84484; 85025; 86140; 87040; 93005; 96374; 96375; 99283; A9270-GY; J2930; J3475

== ENCOUNTER → 2019-02-21 15:02 | Emergency (ER) | payer OTHER ==
[~2019-02-21 15:02] MED LIST changes: +Albuterol/Ipratropium NEB.SOL* Albuterol 2.5 MG/Ipratropium 0.5 MG 3 ML INH ONE; -Albuterol/Ipratropium NEB.SOL* Albuterol 2.5 MG/Ipratropium 0.5 MG 3 ML ONE; +Iohexol 350* (CONTRAST) 500 ML MDV IV ONE; -Magnesium Sulfate 2 GM IV* 2 GM/50 ML BAG IVPB ONE; -NS 0.9% 1000 ML** 1,000 ML IV ONE; +NS 0.9% 1000 ML** 1,000 ML IV SCH; -methylPREDNISolone 125 MG* 2 ML VIAL IV ONE; +predniSONE TAB* 20 MG PO ONE
--- NOTE | 2019-02-21 15:30 | ED ---
Shortness of Breath - HPI Summary HPI Summary: Patient is a 53 y/o F presenting to ED with complaints of SOB and cough for the past week. Patient reports that she has been having similar Sx over the past several months. She states that exertion aggravates Sx. Chest pain with cough is endorsed. Patient denies abdominal pain, fever and edema. On triage, associated severity is rated 5/10. She denies Hx of COPD and emphysema, but has Hx of asthma, anemia. She reports that she is not on any medications. She is a former smoker, reports occasional alcohol usage, denies substance usage. Home medications and allergies are reviewed. - History of Current Complaint Chief Complaint: EDShortnessOfBreath Time Seen by Provider: 02/21/19 15:16 Hx Obtained From: Patient Onset/Duration: Lasting Weeks, Still Present Timing: Constant Current Severity: Moderate Dyspnea At: Exertion Aggravating Factors: Other - exertion Associated Signs & Symptoms: Chest Pain w/Cough - Allergy/Home Medications Allergies/Adverse Reactions: Allergies Allergy/AdvReac Type Severity Reaction Status Date / Time latex Allergy Itching Verified 02/21/19 15:07 PMH/Surg Hx/FS Hx/Imm Hx Endocrine/Hematology History: Denies: Hx Diabetes Cardiovascular History: Denies: Hx Hypercholesterolemia, Hx Hypertension, Hx Pacemaker/ICD, Other Cardiovascular Problems/Disorders Respiratory History: Reports: Hx Asthma, Other Respiratory Problems/Disorders - 06/2018-PNEUMONIA GI History: Reports: Hx Gastroesophageal Reflux Disease - TRIES TO MANAGE WITH DIET- DRINKS MILK WHICH HELPS PER PATIENT Denies: Other GI Disorders History: Denies: Hx Renal Disease, Other Problems/Disorders Musculoskeletal History: 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 Sensory History: Reports: Hx Contacts or Glasses - GLASSES Denies: Hx Legally Blind, Hx Deafness, Hx Hearing Aid Opthamlomology History: Reports: Hx Contacts or Glasses - GLASSES Denies: Hx Legally Blind Neurological History: Denies: Hx Dementia, Other Neuro Impairments/Disorders Psychiatric History: Denies: Hx Panic Disorder - Cancer History Hx Chemotherapy: No Hx Radiation Therapy: No - Surgical History Surgery Procedure, Year, and Place: tonsils; tubal ligation Hx Anesthesia Reactions: No - Immunization History Date of Tetanus Vaccine: utd Date of Influenza Vaccine: fall 2017 Infectious Disease History: No Infectious Disease History: Denies: Traveled Outside the [place] in Last 30 Days - Family History Known Family History: Positive: Other - asthma - Social History Alcohol Use: Occasionally Hx Substance Use: Yes Substance Use Type: Reports: Marijuana Substance Use Comment - Amount & Last Used: SMOKED DAILY Hx Tobacco Use: No Smoking Status (MU): Former Smoker Amount Used/How Often: 1 PACK PER WEEK OFF AND ON 10 YEARS Have You Smoked in the Last Year: Yes Review of Systems Negative: Fever Positive: Chest Pain - w/ cough Positive: Shortness Of Breath, Cough Negative: Abdominal Pain Negative: Edema All Other Systems Reviewed And Are Negative: Yes Physical Exam - Summary Physical Exam Summary: Appearance: Well appearing, no pain distress Skin: warm, dry, reflects adequate perfusion Head/face: normal Eyes: EOMI, LUIS ENT: normal Neck: supple, non-tender Respiratory: bilateral wheezes Cardiovascular: RRR, pulses symmetrical Abdomen: non-tender, soft Musculoskeletal: normal, strength/ROM intact Neuro: normal, sensory motor intact, A&Ox3 Triage Information Reviewed: Yes Vital Signs On Initial Exam: Initial Vitals Temp Pulse Resp BP Pulse Ox 98.3 F 100 19 180/86 97 02/21/19 15:04 02/21/19 15:04 02/21/19 15:04 02/21/19 15:04 02/21/19 15:04 Vital Signs Reviewed: Yes Diagnostics - Vital Signs Vital Signs Temp Pulse Resp BP Pulse Ox 02/21/19 15:04 98.3 F 100 19 180/86 97 - Laboratory Result Diagrams: 02/21/19 15:53 02/21/19 15:53 Lab Statement: Any lab studies that have been ordered have been reviewed, and results considered in the medical decision making process. - Radiology CXR Radiology Interpretation Completed By: Radiologist Summary of Radiographic Findings: CXR IMPRESSION: No radiographic evidence of acute cardiopulmonary disease. THIS REPORT WAS REVIEWED BY DR. BALL. - CT CTA CHEST/THORAX CT Interpretation Completed By: Radiologist Summary of CT Findings: IMPRESSION: No evidence of PE or other acute chest pathology. THIS REPORT WAS REVIEWED BY DR. BALL. - EKG 1538 Cardiac Rate: NL - rate of 78 BPM EKG Rhythm: Sinus Rhythm Summary of EKG Findings: EKG showed sinus rhythm with rate of 78 BPM, no acute changes. Re-Evaluation - Re-Evaluation First Eval Re-Evaluation Time: 18:32 Change: Improved Comment: Patient is improved after treatments. Results of labs and tests were discussed with the patient. Patient to be discharged to home and will follow up with PCP within three days. Strict return precautions given. Patient understands and agrees with plan as discussed. Course/Dx - Course Course Of Treatment: Patient is a 53 y/o F presenting to ED with complaints of SOB and cough for the past week. Patient reports that she has been having similar Sx over the past several months. She states that exertion aggravates Sx. Chest pain with cough is endorsed. Patient denies abdominal pain, fever and edema. On triage, associated severity is rated 5/10. She denies Hx of COPD and emphysema, but has Hx of asthma, anemia. She reports that she is not on any medications. She is a former smoker. On physical exam, bilateral wheezes noted. During ED course, patient received duoneb x2 and prednisone 60 mg PO. Bloodwork was obtained. CXR IMPRESSION: No radiographic evidence of acute cardiopulmonary disease. EKG showed sinus rhythm with rate of 78 BPM, no acute changes. CTA CHEST/THORAX. IMPRESSION: No evidence of PE or other acute chest pathology. Patient is improved after treatments. Results of labs and tests were discussed with the patient. Patient to be discharged to home and will follow up with PCP within three days. Strict return precautions given. Patient understands and agrees with plan as discussed. - Diagnoses Differential Diagnosis/HQI/PQRI: Positive: Asthma, Bronchitis, CHF, Pneumonia Provider Diagnoses: Asthma exacerbation, Bronchospasm Discharge - Sign-Out/Discharge Documenting (check all that apply): Patient Departure - discharge Patient Received Moderate/Deep Sedation with Procedure: No - Discharge Plan Condition: Stable Disposition: HOME Prescriptions: Albuterol/Ipratropium RESP(NF) [Combivent Respimat(NF)] 1 aer IN QID #1 aer predniSONE TAB* [Deltasone TAB*] 50 mg PO ONCE #5 tab Patient Education Materials: Asthma (ED), Bronchospasm (ED) Forms: *Work Release Referrals: Casey Mcgee MD [Primary Care Provider] - 3 Days Additional Instructions: PLEASE RETURN TO ED FOR ANY NEW OR WORSENING SYMPTOMS. FOLLOW-UP WITH YOUR PRIMARY CARE PHYSICIAN WITHIN THREE DAYS. - Billing Disposition and Condition Condition: STABLE Disposition: Home - Attestation Statements Document Initiated by Scribe: Yes Documenting Scribe: GWEN RUSSELL Provider For Whom Scribe is Documenting (Include Credential): LISBET BALL MD Scribe Attestation: I, GWEN RUSSELL, scribed for LISBET BALL MD on 02/21/19 at 1843. Scribe Documentation Reviewed: Yes Provider Attestation: The documentation as recorded by the scribeGWEN accurately reflects the service I personally performed and the decisions made by me, LISBET BALL MD Status of Scribe Document: Viewed
[2019-02-21 16:03] LABS: ABS Eosinophils 0.7 10^3/ul (0-0.6); ABS Lymphocytes 1.4 10^3/ul (1.0-4.8); ABS Monocytes 0.7 10^3/ul (0-0.8); ABS Neutrophils 3.2 10^3/ul (1.5-7.7); Eosinophil % 11.8 %; Hematocrit 44 % (35-47); Hemoglobin 14.8 g/dL (12.0-16.0); Lymphocyte % 23.4 %; Mean Corpuscular HGB Conc 34 g/dL (31-36); Mean Corpuscular Hemoglobin 32 pg (27-31); Mean Corpuscular Volume 94 fL (80-97); Mean Platelet Volume 7.4 fL (7.4-10.4); Nucleated Red Blood Cells % 0.2; Platelet Count 339 10^3/uL (150-450); Red Blood Count 4.64 10^6 /uL (3.70-4.87); Red Cell Distribution Width 13 % (10-15); White Blood Count 6.2 10^3/uL (3.5-10.8)
[2019-02-21 16:21] LABS: Albumin 4.5 g/dL (3.2-5.2); Albumin/Globulin Ratio 1.5 (1-3); BUN/Creatinine Ratio 14.1 (8-20); Calcium 9.3 mg/dL (8.6-10.3); EGFR African American 77.9 (>60); EGFR Non-African American 64.4 (>60); Total Bilirubin 0.4 mg/dL (0.2-1.0); Total Protein 7.5 g/dL (6.4-8.9)
[2019-02-21 16:25] LABS: Activated Partial Thrombo Time 37.1 seconds (26.0-38.0); INR 1.1 (0.82-1.09)
[2019-02-21 18:44] VITALS: BP 159/88
== END | disposition home or self-care (01) ==
LOC: ED 15:02
DX: J45.901 Unspecified asthma with (acute) exacerbation (principal); K21.9 Gastro-esophageal reflux disease without esophagitis; Z91.040 Latex allergy status; Z87.891 Personal history of nicotine dependence
CPT/HCPCS: 36415; 71046; 71275; 80053; 83880; 84484; 85025; 85379; 85610; 85730; 93005; 99282; A9270-GY; J7512; Q9967

== ENCOUNTER 2019-04-10 08:51 | Emergency (ER) | payer OTHER ==
[2019-04-10] MEDS ORDERED: Albuterol/Ipratropium NEB.SOL* Albuterol 2.5 MG/Ipratropium 0.5 MG 3 ML INH ONE (09:05)
[2019-04-10] MEDS ORDERED: Dexamethasone IV* 4 MG/ML 1 ML (4 MG) IM ONE (09:06)
--- OUTSIDE RECORDS SUMMARY | 2019-04-10 09:45 | XMS REPORT | Continuity of Care Document ---
:1965 External Reference #:[id number] Author Name Kathrine Schultz M.D. 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 Onset: 10/09/2013 Note: right wrist Knee pain Brett Wilson MD Onset: 12/12/2017 Disorder of joint of ankle and/or foot Francesco Cano MD Onset: 07/14/2018 Uncomplicated moderate persistent asthma Shakir Prado MD Onset: 02/27/2019 Allergic rhinitis Shakir Prado MD Onset: 02/27/2019 Screening for malignant neoplasm of colon Shakir Prado MD Onset: 02/27/2019 Social History Type Date Description Comments Sex Unknown ETOH Use Denies alcohol use Recreational Drug Use Denies Drug Use Tobacco Use Start: Unknown End: Patient is a former Quit July 2018. Unknown smoker Recreational Drug Use Formerly used Marijuana sporadically Smoking Status Reviewed: 04/07/19 Patient is a former Quit July 2018. smoker Exercise Type/Frequency Does not exercise Allergies, Adverse Reactions, Alerts Active Allergies Reaction Severity Comments Date NKDA 02/23/2013 Seasonal 02/23/2013 Medications Active Medications SIG Qnty Indications Ordering Provider Date Mupirocin apply a thin 22gm L60.9 Kathrine Schultz, 04/07/2019 2% Ointment layer on the M.D. toenail bed twice a day for 7 days Prednisone 1 by mouth every 5tabs Shakir Prado MD 02/27/2019 50mg Tablets day for 5 days Atrovent HFA 2 puffs every 6 25.8gm J45.40 Shakir Prado MD 02/27/2019 17mcg/Act hours Aerosol Azelastine HCL two sprays once 60ml J30.9 Karolina Stevens MD 02/27/2019 (Nasal) a day 137mcg/[place] Solution Fluticasone one spray per 32gm J30.9 Shakir Prado MD 02/27/2019 Propionate nostril twice 50mcg/Act daily Suspension Loratadine 1 by mouth every 30tabs J30.9 Ross Kapadia NP 04/17/2017 10mg Tablets day Calcium 600-D 1 by mouth twice 180tabs N95.1 Leny Wright, 04/17/2017 a day [employer] [phone] Tablets Humidifier as needed in 1units J01.90 Erica Parry, 09/06/2015 1.25Gal [facility] bedroom M.D. Proair HFA 2 puffs every 1units J45.30 Shakir Prado MD 10/12/2014 108(90Base) 4-6 hours as mcg/Act Aerosol needed History Medications Benzonatate 1-2 tab by 30caps J20.9 Casey Astorga 11/05/2018 - 100mg mouth three Therese Mcgee 02/27/2019 Capsules times a day as needed Guaifenesin/Dextrometh 15ml up to 4 237ml J20.9 Casey Astorga 11/05/2018 - orphan Hydrobromide times a day as Therese Mcgee 02/27/2019 needed for 10-100mg/5ML Syrup cough Ibuprofen 1 tab by mouth 60tabs N94.6 Ross Kapadia NP 10/17/2018 - 800mg Tablets three times a 10/17/2018 day with food as needed Immunizations Description No Information Available Vital Signs Date Vital Result Comment 04/07/2019 2:47pm Height 69 inches 5'9" Weight 195.00 lb Heart Rate 93 /min BP Systolic Sitting 112 mmHg BP Diastolic Sitting 75 mmHg Pain Level 9 O2 % BldC Oximetry 94 % BMI (Body Mass Index) 28.8 kg/m2 02/27/2019 10:23am Height 69 inches 5'9" Weight 195.12 lb Heart Rate 94 /min BP Systolic 124 mmHg BP Diastolic 85 mmHg Body Temperature 96.7 F O2 % BldC Oximetry 98 % BMI (Body Mass Index) 28.8 kg/m2 Results Test Date Facility Test Result H/L Range Note CBC Auto 02/21/2019 [facility] White Blood 6.2 10^3/uL Normal 3.5-10.[address] [place] [address] [phone] Red Blood Count 4.64 10^6/uL Normal 3.70-4.87 Hemoglobin 14.8 g/dL Normal 12.0-16.0 Hematocrit 44 % Normal 35-47 Mean Corpuscular Volume 94 fL Normal 80-97 Mean Corpuscular Hemoglobin 32 pg High 27-31 Mean Corpuscular HGB Conc 34 g/dL Normal 31-36 Red Cell Distribution Width 13 % Normal 10-15 Platelet Count 339 10^3/uL Normal 150-450 Mean Platelet Volume 7.4 fL Normal 7.4-10.4 Abs Neutrophils 3.2 10^3/uL Normal 1.5-7.7 Abs Lymphocytes 1.4 10^3/uL Normal 1.0-4.8 Abs Monocytes 0.7 10^3/uL Normal 0-0.8 Abs Eosinophils 0.7 10^3/uL High 0-0.6 Abs Basophils 0.0 10^3/uL Normal 0-0.2 Abs Nucleated RBC 0.0 10^3/uL Granulocyte % 52.8 % Lymphocyte % 23.4 % Monocyte % 11.2 % Eosinophil % 11.8 % Basophil % 0.8 % Nucleated Red Blood Cells % 0.2 Comp Metabolic 02/21/2019 [facility] Sodium 138 mmol/L Normal 135-[address] [place] [address] [phone] Potassium 4.0 mmol/L Normal 3.5-5.0 Chloride 106 mmol/L Normal 101-111 Co2 Carbon Dioxide 24 mmol/L Normal 22-32 Anion Gap 8 mmol/L Normal 2-11 Glucose 95 mg/dL Normal 70-100 Blood Urea Nitrogen 13 mg/dL Normal 6-24 Creatinine 0.92 mg/dL Normal 0.51-0.95 BUN/Creatinine Ratio 14.1 Normal 8-20 Calcium 9.3 mg/dL Normal 8.6-10.3 Total Protein 7.5 g/dL Normal 6.4-8.9 Albumin 4.5 g/dL Normal 3.2-5.2 Globulin 3.0 g/dL Normal 2-4 Albumin/Globulin Ratio 1.5 Normal 1-3 Total Bilirubin 0.40 mg/dL Normal 0.2-1.0 Alkaline Phosphatase 112 U/L High 34-104 Alt 8 U/L Normal 7-52 Ast 19 U/L Normal 13-39 Egfr Non- 64.4 >60 Egfr 77.9 >60 1 Laboratory 02/21/2019 [facility] Troponin-I 0.00 ng/mL <0.04 2 test finding [address] (TnI) [place] [address] [phone] Inr/Protime 02/21/2019 [facility] Inr 1.10 High 0.82-1.[address] [place] [address] [phone] Laboratory 02/21/2019 [facility] Partial 37.1 Normal 26.0-38. test finding [address] Thrombo Time seconds 0 [place] [address] PTT [phone] D Dimer Quantitative 263 ng/mL High Less Than 230 4 B-Type Natriuretic Peptide BNP 18 pg/mL <=100 CBC Auto 01/29/2019 [facility] White Blood 8.0 10^3/uL Normal 3.5-10.[address] [place] [address] [phone] Red Blood Count 4.32 10^6/uL Normal 3.70-4.87 Hemoglobin 14.0 g/dL Normal 12.0-16.0 Hematocrit 40 % Normal 35-47 Mean Corpuscular Volume 94 fL Normal 80-97 Mean Corpuscular Hemoglobin 33 pg High 27-31 Mean Corpuscular HGB Conc 35 g/dL Normal 31-36 Red Cell Distribution Width 13 % Normal 10-15 Platelet Count 302 10^3/uL Normal 150-450 Mean Platelet Volume 7.7 fL Normal 7.4-10.4 Abs Neutrophils 3.4 10^3/uL Normal 1.5-7.7 Abs Lymphocytes 3.0 10^3/uL Normal 1.0-4.8 Abs Monocytes 0.9 10^3/uL High 0-0.8 Abs Eosinophils 0.7 10^3/uL High 0-0.6 Abs Basophils 0.1 10^3/uL Normal 0-0.2 Abs Nucleated RBC 0.0 10^3/uL Granulocyte % 42.5 % Lymphocyte % 37.5 % Monocyte % 10.7 % Eosinophil % 8.3 % Basophil % 1.0 % Nucleated Red Blood Cells % 0.2 Comp Metabolic 01/29/2019 [facility] Sodium 140 mmol/L Normal 135-145 Panel [address] [place] [address] [phone] Chloride 107 mmol/L Normal 101-111 Co2 Carbon Dioxide 26 mmol/L Normal 22-32 Glucose 103 mg/dL High 70-100 Blood Urea Nitrogen 14 mg/dL Normal 6-24 Creatinine 0.95 mg/dL Normal 0.51-0.95 BUN/Creatinine Ratio 14.7 Normal 8-20 Calcium 8.9 mg/dL Normal 8.6-10.3 Total Protein 6.6 g/dL Normal 6.4-8.9 Albumin 4.0 g/dL Normal 3.2-5.2 Globulin 2.6 g/dL Normal 2-4 Albumin/Globulin Ratio 1.5 Normal 1-3 Total Bilirubin 0.30 mg/dL Normal 0.2-1.0 Alkaline Phosphatase 116 U/L High 34-104 Alt 7 U/L Normal 7-52 Egfr Non- 62.0 >60 Egfr 75.0 >60 5 Potassium 3.9 mmol/L Normal 3.5-5.0 Anion Gap 7 mmol/L Normal 2-11 Ast 20 U/L Normal 13-39 Laboratory test 01/29/2019 [facility] C Reactive 6.12 mg/L Normal <8.01 finding [address] [place] [address] [phone] Troponin-I (TnI) 0.00 ng/mL <0.04 6 CKMB 01/29/2019 [facility] CKMB ng/mL 3.7 ng/mL Normal 0.6- 6.3 [place] [address] [phone] Laboratory test 01/29/2019 [facility] Lactic Acid 0.5 mmol/L Normal 0.5-2.0 7 [place] [address] [phone] B-Type Natriuretic Peptide BNP 12 pg/mL <=100 Blood Culture SEE RESULT BELOW 8 1 Because ethnic data is not always [...] 5 Kidney failure <15 (or dialysis) 2 Troponin-I testing on Plasma Separator Tubes (PST) has a known false positive rate of 0.20-0.40%. All positive troponins reflex immediately to secondary confirmatory testing. Using the Status Overload DxI 800 Access Immunoassay systems, the 99th percentile upper reference limit was demonstrated to be < 0.03 ng/mL. 3 Standard intensity warfarin therapeutic range: 2.0-3.0 High intensity warfarin therapeutic range: 2.5-3.5 4 Please note: The following may produce a false positive D Dimer test: - Rheumatoid factor greater than 60 IU/ml - Plasma hemoglobin greater than 0.05 gm/dl - Bilirubin greater than 50 mg/dl - Lipids greater than 1000 mg/dl - FDP greater than 20 ug/ml 5 Because ethnic data is not always readily [...] 15-29 5 Kidney failure <15 (or dialysis) 6 Troponin-I testing on Plasma Separator Tubes (PST) has a known false positive rate of 0.20-0.40%. All positive troponins reflex immediately to secondary confirmatory testing. Using the Status Overload DxI 800 Access Immunoassay systems, the 99th percentile upper reference limit was demonstrated to be < 0.03 ng/mL. 7 [facility] Severe Sepsis and Septic Shock Management Bundle Measure requires all lactic acids initially measuring >2.0 mmol/L be repeated. 8 SEE RESULT BELOW Name: JALENCORDELLNGA Olson : [address]: Casey Martinez MD Acct: [id number] Unit: [id number] AGE: 53 Location: ED Re01/29/19 SEX: F Status: REG ER SPEC: [id number] GUIDO: 01/29/19-2019 [facility] DR: Casey Martinez MD REQ: [id number] RECD: 01/29/19 STATUS: ROS VIDES DR: Casey Mcgee III, MD _ SOURCE: BLOOD,VENO SPDESC: ORDERED: Blood Cult COMMENTS: L ARM Procedure Result Reported Site Aerobic Culture Bottle Final 02/03/19- 2025 ML No Growth Day 5 Anaerobic Culture Bottle Final 02/03/19- 2023 ML No Growth Day 5 * ML - Main Lab . END OF REPORT DEPARTMENT OF PATHOLOGY, [address] [place] [address] Delano Mcdaniel M.D. Director [facility] # [id number] Procedures Date Code Description Status 10/17/2018 10687 EKG Tracing & Interpretation Completed 05/22/2017 [id number] Mammogram Completed 05/18/2015 [id number] Mammogram Completed Medical Devices Description No Information Available Encounters Type Date Location Provider Dx Diagnosis Office Visit 02/27/2019 [facility] Internal Shakir Prado MD F17.211 Nicotine 10:00a Medicine - [address] dependence, cigarettes, in remission J30.9 Allergic rhinitis, unspecified Z12.11 Encounter for screening for malignant neoplasm of colon J45.41 Moderate persistent asthma with (acute) exacerbation Office Visit 11/05/2018 1:00p [facility] Internal Casey Astorga J20.9 Acute bronchitis, Medicine - Marito Mcgee M.D. unspecified J45.909 Unspecified asthma, uncomplicated Office Visit 10/17/2018 1:00p [employer] [facility] Internal Ross Kapadia, Z01.818 Encounter for other Medicine - [employer] preprocedural Ccmob examination M25.872 Other specified joint disorders, left ankle and foot J45.20 Mild intermittent asthma, uncomplicated Assessments Date Code Description Provider 04/07/2019 L60.9 Nail disorder, unspecified Kathrine Schultz M.D. 04/07/2019 Z23 Encounter for immunization Kathrine Schultz M.D. 02/27/2019 F17.211 Nicotine dependence, cigarettes, in Shakir Prado MD remission 02/27/2019 J30.9 Allergic rhinitis, unspecified Shakir Prado MD 02/27/2019 Z12.11 Encounter for screening for malignant Shakir Prado MD neoplasm of colon 02/27/2019 J45.41 Moderate persistent asthma with (acute) Shakir Prado MD exacerbation 11/05/2018 J20.9 Acute bronchitis, unspecified Casey Mcgee M.D. 11/05/2018 J45.909 Unspecified asthma, uncomplicated Casey Mcgee M.D. 10/17/2018 Z01.818 Encounter for other preprocedural Karolina Stevens MD examination 10/17/2018 Z01.818 Encounter for other preprocedural Ross Kapadia NP examination 10/17/2018 M25.872 Other specified joint disorders, left ankle Karolina Stevens MD and foot 10/17/2018 M25.872 Other specified joint disorders, left ankle Ross Kapadia NP and foot 10/17/2018 J45.20 Mild intermittent asthma, uncomplicated Rossalley Kapadia NP Plan of Treatment 04/07/2019 - Kathrine Schultz M.D.L60.9 Nail disorder, unspecifiedNew Medication: Mupirocin 2 % - apply a thin layer on the toenail bed twice a day for 7 daysComments:discussed soaking in warm water apply topical antibiotic underneath the nail bed and around itZ23 Encounter for immunizationImmunizations /Injections:Tdap - Tetanus/Diptheria/Acellular Pertussis Functional Status Description No Information Available Mental Status Description No Information Available Referrals Refer to Reason for Referral Status Appt Date Jeremiah Gayle M.D. age appropriate colon cancer Received Partial screening. [address] [place] [address] [phone]
--- NOTE | 2019-04-10 09:54 | ED ---
Shortness of Breath - HPI Summary HPI Summary: This patient is a 54-year-old female with a history of asthma presenting to the ED with feelings of asthma exacerbation. She was to have a PFT test today, however when arrived to her appointment they stated her appointment was yesterday. She states she has not been on her albuterol inhaler or Flovent 6 hours per their request due to her PFT appointment. She states over the past 6 hours, she has been developing worsening shortness of breath. She states prior to this she has had shortness of breath and believes her current medications are not improving her symptoms. She denies any chest pain. She does endorse a mild cough with production of white and green sputum. Denies any fevers, sweats , chills. - History of Current Complaint Chief Complaint: EDShortnessOfBreath Time Seen by Provider: 04/10/19 08:54 Hx Obtained From: Patient Onset/Duration: Gradual Onset Timing: Constant Current Severity: Moderate Dyspnea At: Rest Alleviating Factors: Bronchodilators Associated Signs & Symptoms: Cough (Productive) - Risk Factors Pulmonary Embolism: Negative Cardiac: Negative Pseudomonas: Chronic Lung Disease - Allergy/Home Medications Allergies/Adverse Reactions: Allergies Allergy/AdvReac Type Severity Reaction Status Date / Time latex Allergy Itching Verified 02/21/19 15:07 Home Medications: Home Medications Albuterol HFA INHALER* [Ventolin HFA Inhaler*] 1 puff INH Q6H PRN 04/10/19 [ History Confirmed 04/10/19] Ipratropium HFA INHALER(NF) [Atrovent Hfa Inhaler(NF)] 2 puff INH Q6HR PRN 04/10 [History Confirmed 04/10/19] PMH/Surg Hx/FS Hx/Imm Hx Previously Healthy: Yes Endocrine/Hematology History: Denies: Hx Diabetes Cardiovascular History: Denies: Hx Hypercholesterolemia, Hx Hypertension, Hx Pacemaker/ICD, Other Cardiovascular Problems/Disorders Respiratory History: Reports: Hx Asthma, Other Respiratory Problems/Disorders - 06/2018-PNEUMONIA GI History: Reports: Hx Gastroesophageal Reflux Disease - TRIES TO MANAGE WITH DIET- DRINKS MILK WHICH HELPS PER PATIENT Denies: Other GI Disorders History: Denies: Hx Renal Disease, Other Problems/Disorders Musculoskeletal History: 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 Sensory History: Reports: Hx Contacts or Glasses - GLASSES Denies: Hx Legally Blind, Hx Deafness, Hx Hearing Aid Opthamlomology History: Reports: Hx Contacts or Glasses - GLASSES Denies: Hx Legally Blind Neurological History: Denies: Hx Dementia, Other Neuro Impairments/Disorders Psychiatric History: Denies: Hx Panic Disorder - Cancer History Hx Chemotherapy: No Hx Radiation Therapy: No - Surgical History Surgery Procedure, Year, and Place: tonsils; tubal ligation Hx Anesthesia Reactions: No - Immunization History Date of Tetanus Vaccine: utd Date of Influenza Vaccine: fall 2017 Hx Pertussis Vaccination: No Immunizations Up to Date: Yes Infectious Disease History: No Infectious Disease History: Denies: Traveled Outside the [place] in Last 30 Days - Family History Known Family History: Positive: Other - asthma - Social History Occupation: Unemployed Lives: Alone Alcohol Use: Occasionally Hx Substance Use: Yes Substance Use Type: Reports: Marijuana Substance Use Comment - Amount & Last Used: recreationaly Hx Tobacco Use: No Smoking Status (MU): Former Smoker Amount Used/How Often: 1 PACK PER WEEK OFF AND ON 10 YEARS Have You Smoked in the Last Year: Yes Review of Systems Constitutional: Negative Negative: Fever, Fatigue, Skin Diaphoresis Negative: Palpitations, Chest Pain Positive: Shortness Of Breath, Cough Genitourinary: Negative Positive: no symptoms reported, see HPI Negative: Arthralgia, Myalgia Skin: Negative Negative: Headache, Weakness All Other Systems Reviewed And Are Negative: Yes Physical Exam Triage Information Reviewed: Yes Vital Signs On Initial Exam: Initial Vitals Temp Pulse Resp BP Pulse Ox 97.9 F 108 22 149/98 97 04/10/19 08:51 04/10/19 08:51 04/10/19 08:51 04/10/19 08:51 04/10/19 08:51 Vital Signs Reviewed: Yes Appearance: Positive: Well-Nourished, Ill-Appearing - tearful Head/Face: Positive: Normal Head/Face Inspection Eyes: Positive: EOMI, LUIS, Conjunctiva Clear Neck: Positive: Supple, No Lymphadenopathy Respiratory/Lung Sounds: Positive: Clear to Auscultation, Breath Sounds Present Cardiovascular: Positive: RRR, Pulses are Symmetrical in both Upper and Lower Extremities Musculoskeletal: Positive: Strength/ROM Intact Neurological: Positive: Speech Normal Psychiatric: Positive: Affect/Mood Appropriate AVPU Assessment: Alert Diagnostics - Vital Signs Vital Signs Temp Pulse Resp BP Pulse Ox 04/10/19 09:13 90 16 97 04/10/19 08:51 97.9 F 108 22 149/98 97 - Laboratory Lab Statement: Any lab studies that have been ordered have been reviewed, and results considered in the medical decision making process. Course/Dx - Course Course Of Treatment: During this was treatment, the patient is evaluated for worsening shortness of breath over the course of the past week, which has worsened even more in the past 6 hours since not being able to take her inhalers. On arrival into the ED, the patient appears tearful that she missed her appointment and states she is short of breath. O2 sat is 96% on room air. Chest x-ray obtained which has no acute cardio pulmonary disease. She is given a DuoNeb with good improvement. She will be given a short course of steroids, 50 mg prednisone once daily 5 days and is encouraged to continuation of her Flovent and albuterol inhalers until follow-up. She will follow back up with Arely Dunn as soon as possible for PFT tests. Patient is currently asymptomatic, stating she feels well and is requesting food and drink. - Diagnoses Differential Diagnosis/HQI/PQRI: Positive: Asthma, Bronchitis, Pneumonia Provider Diagnoses: Asthma exacerbation Discharge ED - Sign-Out/Discharge Documenting (check all that apply): Patient Departure Patient Received Moderate/Deep Sedation with Procedure: No - Discharge Plan Condition: Stable Disposition: HOME Prescriptions: predniSONE TAB* [Deltasone TAB*] 50 mg PO DAILY #5 tab Patient Education Materials: Asthma (ED) Referrals: Lynn Avalos MD [Medical Doctor] - Casey Mcgee MD [Primary Care Provider] - Additional Instructions: It looks like he were to see Arely Peña, call their office today to set up a new PFT appointment Prednisone once daily x 5 days Continue all your other medications as prescribed - Billing Disposition and Condition Condition: STABLE Disposition: Home - Attestation Statements Provider Attestation: I was available for consult. This patient was seen by the SWETHA. The patient was not presented to, seen by, or examined by me. -Mark
[2019-04-10 10:43] VITALS: BP 132/97
== END 2019-04-10 10:45 | disposition home or self-care (01) ==
LOC: ED 08:51
DX: J45.901 Unspecified asthma with (acute) exacerbation (principal); K21.9 Gastro-esophageal reflux disease without esophagitis; Z87.891 Personal history of nicotine dependence; Z79.899 Other long term (current) drug therapy; Z91.040 Latex allergy status
CPT/HCPCS: 71045; 96372; 99283; A9270-GY; J1100

== ENCOUNTER 2019-06-13 23:14 | Emergency (ER) | payer OTHER ==
[2019-06-13] MEDS ORDERED: Ketorolac INJ* 30 MG/ML 1 ML VIAL IV PUSH ONE (23:39)
[2019-06-13] MEDS ORDERED: Albuterol 0.5% CONC NEB.SOL* 5 MG/ML 20 ml BOT INH ONE (23:39)
[2019-06-13] MEDS ORDERED: predniSONE TAB* 20 MG PO ONE (23:40)
--- NOTE | 2019-06-13 23:40 | ED ---
Respiratory - HPI Summary HPI Summary: This patient is a 54 year old F presenting to [facility] with a chief complaint of mid CP when she dry coughs worsening since 06/10/19. Symptoms aggravated by nothing. Symptoms alleviated by nothing. Patient reports PNA end of this year ( May) when asthma worsened and onset of SOB. Pt reports it has been hard to get back to baseline since then. Hx asthma (takes asthma pump, steroids), anemic. Pt works at [employer]. - History of Current Complaint Chief Complaint: EDShortnessOfBreath Stated Complaint: SOB PER PT Hx Obtained From: Patient Onset/Duration: Lasting Days, Still Present Current Severity: Severe Pain Intensity: 9 Character: Wheezing, Cough (Nonproductive) Aggravating Factor(s): Nothing Alleviating Factor(s): Nothing - Allergy/Home Medications Allergies/Adverse Reactions: Allergies Allergy/AdvReac Type Severity Reaction Status Date / Time latex Allergy Itching Verified 02/21/19 15:07 PMH/Surg Hx/FS Hx/Imm Hx Endocrine/Hematology History: Denies: Hx Diabetes Cardiovascular History: Denies: Hx Hypercholesterolemia, Hx Hypertension, Hx Pacemaker/ICD, Other Cardiovascular Problems/Disorders Respiratory History: Reports: Hx Asthma, Other Respiratory Problems/Disorders - 06/2018-PNEUMONIA GI History: Reports: Hx Gastroesophageal Reflux Disease - TRIES TO MANAGE WITH DIET- DRINKS MILK WHICH HELPS PER PATIENT Denies: Other GI Disorders History: Denies: Hx Renal Disease, Other Problems/Disorders Musculoskeletal History: 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 Sensory History: Reports: Hx Contacts or Glasses - GLASSES Denies: Hx Legally Blind, Hx Deafness, Hx Hearing Aid Opthamlomology History: Reports: Hx Contacts or Glasses - GLASSES Denies: Hx Legally Blind Neurological History: Denies: Hx Dementia, Other Neuro Impairments/Disorders Psychiatric History: Denies: Hx Panic Disorder - Cancer History Hx Chemotherapy: No Hx Radiation Therapy: No - Surgical History Surgery Procedure, Year, and Place: tonsils; tubal ligation Hx Anesthesia Reactions: No - Immunization History Date of Tetanus Vaccine: utd Date of Influenza Vaccine: fall 2018 Infectious Disease History: No Infectious Disease History: Denies: Traveled Outside the [place] in Last 30 Days - Family History Known Family History: Positive: Other - asthma - Social History Alcohol Use: Occasionally Hx Substance Use: Yes Substance Use Type: Reports: Marijuana Substance Use Comment - Amount & Last Used: recreationaly Hx Tobacco Use: No Smoking Status (MU): Former Smoker Amount Used/How Often: 1 PACK PER WEEK OFF AND ON 10 YEARS Have You Smoked in the Last Year: Yes Review of Systems Positive: Chest Pain Positive: Shortness Of Breath, Cough All Other Systems Reviewed And Are Negative: Yes Physical Exam - Summary Physical Exam Summary: Appearance: Well-appearing, Well-nourished, lying in bed comfortably Skin: Warm, dry, no obvious rash Eyes: sclera anicteric, no conjunctival pallor ENT: mucous membranes moist, pharynx appears normal Neck: Supple, nontender Respiratory: scattered inspiratory and expiratory wheezes noted with mild aeration Cardiovascular: Normal S1, S2. No murmurs. Normal distal pulses in tibial and radial bilaterally. Tenderness to palpation over the sternum Abdomen: Soft, nontender, normal active bowel sounds present Musculoskeletal: Normal, Strength/ROM Intact Neurological: A&Ox3, awake and alert, mentation is normal, speech is fluent and appropriate Psychiatric: affect is normal, does not appear anxious or depressed Triage Information Reviewed: Yes Vital Signs On Initial Exam: Initial Vitals Temp Pulse Resp BP Pulse Ox 98.1 F 104 18 124/94 97 06/13/19 23:17 06/13/19 23:17 06/13/19 23:17 06/13/19 23:17 06/13/19 23:17 Vital Signs Reviewed: Yes Procedures - Sedation Patient Received Moderate/Deep Sedation with Procedure: No Diagnostics - Vital Signs Vital Signs Temp Pulse Resp BP Pulse Ox 06/13/19 23:17 98.1 F 104 18 124/94 97 - Laboratory Result Diagrams: 06/13/19 23:47 06/13/19 23:47 Lab Statement: Any lab studies that have been ordered have been reviewed, and results considered in the medical decision making process. - Radiology Chest X-Ray Radiology Interpretation Completed By: ED Physician Summary of Radiographic Findings: Per ED Physician,. no acute process. Pending official report. Disposition - Course Course Of Treatment: This patient is a 54 year old F presenting to [facility] with a chief complaint of mid CP when she dry coughs worsening since 06/10/19. Patient reports PNA end of this year (May) when asthma worsened and onset of SOB. Hx asthma (takes asthma pump, steroids), anemic. Physical Exam Findings reveal no abnormalities except for scattered inspiratory and expiratory wheezes noted with mild aeration, Tenderness to palpation over the sternum. CXR reveals no acute process. Test results with no significant abnormalities expect for MCH 32 H, Absolute Monos 1.3 H, Creatinine 1.16 H, Alkaline Phosphatase 108 H. In the ED course the patient was given 1 tab Hydrocodone Bitart/Acetaminophen PO, 25 ml Albuterol, 400 mg Ibuprofen PO, 40 mg Prednisone PO, 10 mg Prochlorperazine PO. Patient will be discharged with dx asthma exacerbation with prescription for 250 mg Azithromycin, 8 mg Ondansetron PO, 40 mg prednisone PO, 25 mg Prochlorperazine and follow up from Dr. Mcgee, PCP. The patient is agreeable with this plan. - Diagnoses Provider Diagnoses: Asthma exacerbation Discharge ED - Sign-Out/Discharge Documenting (check all that apply): Patient Departure - discharge - Discharge Plan Condition: Good Disposition: HOME Prescriptions: Azithromycin TAB* [Zithromax TAB (Z-SANDRA) 250 mg #6 tabs] 2 tab PO .TODAY, THEN 1 DAILY #1 sandra Ondansetron ODT TAB* [Zofran 4 MG Odt TAB*] 8 mg PO Q6H PRN #12 tab.odt PRN Reason: Nausea predniSONE TAB* [Deltasone 20 MG TAB*] 40 mg PO DAILY 5 Days #10 tab Prochlorperazine SUPP* [Compazine Supp*] 25 mg [place] Q12H PRN #5 supp PRN Reason: Nausea Patient Education Materials: Asthma (ED) Forms: *Work Release Referrals: Casey Mcgee MD [Primary Care Provider] - - Billing Disposition and Condition Condition: GOOD Disposition: Home - Attestation Statements Document Initiated by Sahil: Yes Documenting Scribe: Cinda Dietz Provider For Whom Sahil is Documenting (Include Credential): Dr. Tony Chavez MD Scribe Attestation: Cinda White scribed for Dr. Tony Chavez MD on 06/16/19 at 1834. Scribe Documentation Reviewed: Yes Provider Attestation: The documentation as recorded by the Cinda santos accurately reflects the service I personally performed and the decisions made by me, Dr. Tony Chavez MD Status of Scribe Document: Viewed
[2019-06-13] MEDS ORDERED: Ibuprofen TAB* 400 MG PO ONE (23:49)
[2019-06-13 23:57] LABS: ABS Basophils 0.1 10^3/ul (0-0.2); ABS Lymphocytes 1.6 10^3/ul (1.0-4.8); ABS Monocytes 1.3 10^3/ul (0-0.8); ABS Neutrophils 1.7 10^3/ul (1.5-7.7); Eosinophil % 0.3 %; Hematocrit 42 % (35-47); Hemoglobin 14.3 g/dL (12.0-16.0); Lymphocyte % 34.3 %; Mean Corpuscular HGB Conc 34 g/dL (31-36); Mean Corpuscular Hemoglobin 32 pg (27-31); Mean Corpuscular Volume 93 fL (80-97); Mean Platelet Volume 7.4 fL (7.4-10.4); Nucleated Red Blood Cells % 0.1; Platelet Count 277 10^3/uL (150-450); Red Blood Count 4.52 10^6 /uL (3.70-4.87); Red Cell Distribution Width 14 % (10-15); White Blood Count 4.7 10^3/uL (3.5-10.8)
--- OUTSIDE RECORDS SUMMARY | 2019-06-14 00:03 | XMS REPORT | Continuity of Care Document ---
:1965 External Reference #:[id number] Author Name Lynn Avalos MD (transmitted by agent of provider Sachi Christopher) Address [address], [address] [place] [address] Care Team Providers Name Role Phone Shakir Prado MD - Hospitalist Care Team Information Chief Wellness Officer [phone] Problems Active Problems Provider Date Sprain of [...] Sex Unknown ETOH Use Denies alcohol use Tobacco Use Start: Unknown End: Patient is a former Quit July 2018. Unknown smoker Recreational Drug Use Current Drug User Current Marijuana User Smoking Status Reviewed: 05/19/19 Patient is a former Quit July 2018. smoker Exercise Type/Frequency Does not exercise Allergies, Adverse Reactions, Alerts Active Allergies Reaction Severity Comments Date NKDA 02/23/2013 Seasonal 02/23/2013 Latex Itching 05/19/2019 Medications Active Medications SIG Qnty Indications Ordering Provider Date Atrovent HFA 2 puffs every 6 25.8gm J45.40 Shakir Prado MD 02/27/2019 17mcg/Act hours Aerosol Azelastine HCL two sprays once a 60ml J30.9 Karolina tSevens MD 02/27/2019 (Nasal) day 137mcg/[place] Solution Loratadine Take 1 Tablet By 30tabs J30.9 Ross Kapadia NP 04/17/2017 10mg Tablets Mouth Every Day Humidifier as needed in 1units J01.90 Erica Parry, 09/06/2015 1.25Gal [facility] [place] bedroom M.D. Proair HFA 2 puffs every 4-6 1units J45.30 Shakir Prado MD 10/12/2014 108(90Base) hours as needed mcg/Act Aerosol History Medications Mupirocin apply a thin 22gm L60.9 Kathrine Schultz, 04/07/2019 - 2% Ointment layer on the M.D. 05/19/2019 toenail bed twice a day for 7 days Prednisone 1 by mouth every 5tabs Shakir Prado MD 02/27/2019 - 50mg Tablets day for 5 days 05/18/2019 Fluticasone one spray per 32gm J30.9 Shakir Prado MD 02/27/2019 - Propionate nostril twice 05/19/2019 50mcg/Act daily Suspension Immunizations CPT Code Status Date Vaccine Lot # [id number] Given 04/07/2019 Tdap - Tetanus/Diptheria/Acellular Pertussis [id number] Vital Signs Date Vital Result Comment 05/19/2019 8:18am Height 69 inches 5'9" Weight 198.00 lb Heart Rate 103 /min BP Systolic 126 mmHg BP Diastolic 80 mmHg O2 % BldC Oximetry 96 % BMI (Body Mass Index) 29.2 kg/m2 04/07/2019 2:47pm Height 69 inches 5'9" Weight 195.00 lb Heart Rate 93 /min BP Systolic Sitting 112 mmHg BP Diastolic Sitting 75 mmHg Pain Level 9 O2 % BldC Oximetry 94 % BMI (Body Mass Index) 28.8 kg/m2 Results Test Date Facility Test Result H/L Range Note CBC Auto 02/21/2019 [facility] White Blood 6.2 10^3/uL Normal 3.5-10.[address] [place] [address] [phone] Red Blood Count 4.64 10^6/uL Normal 3.70-4.87 [...] Blood Cells % 0.2 Comp Metabolic 02/21/2019 [facility] Sodium 138 mmol/L Normal 135-[address] [place] [address] [phone] Potassium 4.0 mmol/L Normal 3.5-5.0 Chloride 106 [...] >60 Egfr 77.9 >60 1 Laboratory 02/21/2019 [facility] Troponin-I 0.00 ng/mL <0.04 2 test finding [address] (TnI) [place] [address] [phone] Inr/Protime 02/21/2019 [facility] Inr 1.10 High 0.82-1.[address] [place] [address] [phone] Laboratory 02/21/2019 [facility] Partial 37.1 Normal 26.0-38. test finding Thrombo Time seconds [address] [place] [address] PTT [phone] D Dimer Quantitative 263 ng/mL High Less Than 230 4 B-Type Natriuretic Peptide BNP 18 pg/mL <=100 CBC Auto 01/29/2019 [facility] White Blood 8.0 10^3/uL Normal 3.5-10.8 [place] [address] [phone] Red Blood Count 4.32 10^6/uL Normal 3.70-4.87 [...] Blood Cells % 0.2 Comp Metabolic 01/29/2019 [facility] Sodium 140 mmol/L Normal 135-[address] [place] [address] [phone] Chloride 107 mmol/L Normal 101-111 Co2 Carbon [...] 20 U/L Normal 13-39 Laboratory test 01/29/2019 [facility] C Reactive 6.12 mg/L Normal <8.01 finding [address] [facility] [place] [address] [phone] Troponin-I (TnI) 0.00 ng/mL <0.04 6 CKMB 01/29/2019 [facility] CKMB ng/mL 3.7 ng/mL Normal 0.6- 6.3 [address] [place] [address] [phone] Laboratory test 01/29/2019 [facility] Lactic Acid 0.5 mmol/L Normal 0.5-2.0 7 finding [address] [place] [address] [phone] B-Type Natriuretic Peptide BNP 12 pg/mL <=100 [...] immediately to secondary confirmatory testing. Using the [employer] DxI 800 Access Immunoassay systems, the 99th [...] immediately to secondary confirmatory testing. Using the [employer] DxI 800 Access Immunoassay systems, the 99th percentile upper reference limit was demonstrated to be < 0.03 ng/mL. 7 MTS Severe Sepsis and Septic Shock Management Bundle Measure requires all lactic acids initially measuring >2.0 mmol/L be repeated. 8 SEE RESULT BELOW Name: LETY SCHWAB : [address]: Casey Martinez MD Acct: [id number] Unit: [id number] AGE: 53 Location: ED Re01/29/19 SEX: F Status: REG ER SPEC: [id number] GUIDO: 01/29/19-[address] [facility] [address]: Casey Martinez MD REQ: [id number] RECD: 01/29/19 STATUS: ROS VIDES DR: Casey Mcgee III, MD _ SOURCE: BLOOD,VENO SPDESC: ORDERED: Blood Cult COMMENTS: L ARM Procedure Result Reported Site Aerobic Culture Bottle Final 02/03/19- 2025 ML No Growth Day 5 Anaerobic Culture Bottle Final 02/03/19- 2023 ML No Growth Day 5 * ML - Main Lab . END OF REPORT DEPARTMENT OF PATHOLOGY, [address] [place] [address] Delano Mcdaniel M.D. Director [facility] # [id number] Procedures Date Code Description Status 05/22/2017 [id number] Mammogram Completed 05/18/2015 [id number] Mammogram Completed Medical Devices Description No Information Available Encounters Type Date Location Provider Dx Diagnosis Office Visit 05/19/2019 [facility] Lynn Avalos, R06.02 Shortness of 8:30a [facility] J45.909 Unspecified asthma, uncomplicated K21.9 Gastro-esophageal reflux disease without esophagitis G47.9 Sleep disorder, unspecified Office Visit 04/07/2019 2:40p [facility] Internal Kathrine S90.211A Contusion of Medicine - Therese Schultz right great toe Ccmob w damage to nail, init encntr Office Visit 02/27/2019 10:00a [facility] Internal Shakir Prado MD F17.211 Nicotine Medicine - dependence, [address] cigarettes, in remission J30.9 Allergic rhinitis, unspecified Z12.11 Encounter for screening for malignant neoplasm of colon J45.41 Moderate persistent asthma with (acute) exacerbation Assessments Date Code Description Provider 05/19/2019 R06.02 Shortness of breath Lynn Avalos MD 05/19/2019 J45.909 Unspecified asthma, uncomplicated Lynn Avalos MD 05/19/2019 K21.9 Gastro-esophageal reflux disease without Lynn Avalos MD esophagitis 05/19/2019 G47.9 Sleep disorder, unspecified Lynn Avalos MD 04/07/2019 S90.211A Contusion of right great toe with damage to Kathrine Schultz M.D. nail, initial encounter 02/27/2019 F17.211 Nicotine dependence, cigarettes, in Shakir Prado MD remission 02/27/2019 J30.9 Allergic rhinitis, unspecified Shakir Prado MD 02/27/2019 Z12.11 Encounter for screening for malignant Shakir Prado MD neoplasm of colon 02/27/2019 J45.41 Moderate persistent asthma with (acute) Shakir Prado MD exacerbation Plan of Treatment Future Appointment(s):07/15/2019 9:00 am - Lynn Avalos MD at [facility]05/19/2019 - Lynn Avalos, MDR06.02 Shortness of breathFollow up:1 hmivlI81.909 Unspecified asthma, uncomplicatedNew Labs:Anca Panel For Vasculitis, Ordered: 05/19/19Igg Subclasses, Ordered: Immunoglobulin E (Ige), Ordered: 05/19/19Immunoglobulin A (Iga), Ordered: Anti Nuclear Antibody, Ordered: 05/19/19Alpha 1 Antitrypsin A1a, Ordered: 05/19/19New Orders:PFTW/Spirometry Vol Pre/Post Bronchdilat Dlco Complete, Ordered: 05/19/19K21.9 Gastro-esophageal reflux disease without dxscuqzfsriH59.9 Sleep disorder, unspecifiedNew Orders:Overnight Oximetry, Ordered: 05/19/19 Functional Status Description No Information Available Mental Status Description No Information Available Referrals Refer to Reason for Referral Status Appt Date Luciano Worrell MD age appropriate screening colonoscopy Sent [address] [place] [address] [phone] Lynn Avalos MD Sent 05/19/[address] [place] [address] [phone] Jeremiah Gayle M.D. age appropriate colon cancer Received Partial screening. [address] [place] [address] [phone]
[2019-06-14 00:14] LABS: Albumin 4.4 g/dL (3.2-5.2); Albumin/Globulin Ratio 1.5 (1-3); BUN/Creatinine Ratio 9.5 (8-20); EGFR African American 59.4 (>60); EGFR Non-African American 49.1 (>60); Globulin 2.9 g/dL (2-4); Potassium 3.7 mmol/L (3.5-5.0); Total Bilirubin 0.4 mg/dL (0.2-1.0); Total Protein 7.3 g/dL (6.4-8.9)
[2019-06-14 00:16] LABS: Troponin I 0.01 ng/mL (<0.04)
[2019-06-14] MEDS ORDERED: Albuterol 0.5% CONC NEB.SOL* 5 MG/ML 20 ml BOT ONE (00:33)
[2019-06-14] MEDS ORDERED: HYDROcodone/ACETAMIN 5-325 MG* 1 TAB PO ONE (02:18)
[2019-06-14] MEDS ORDERED: Prochlorperazine TAB* 10 MG PO ONE (02:29)
[2019-06-14 05:12] VITALS: BP 111/75
== END 2019-06-14 05:11 | disposition home or self-care (01) ==
LOC: ED 23:14
DX: J45.901 Unspecified asthma with (acute) exacerbation (principal); R07.9 Chest pain, unspecified; Z87.891 Personal history of nicotine dependence; R06.02 Shortness of breath; R05 Cough
CPT/HCPCS: 36415; 71046; 80053; 84484; 85025; 93005; 99283; A9270-GY; J7512; J7611; Q0164